=== PATIENT | male | born 1985 | race Caucasian/White ===

== ENCOUNTER → 2019-02-25 18:58 | Outpatient (CLI) | payer OTHER, SELFPAY ==
--- NOTE | 2019-02-25 | DI.MRI.S_ITS ---
PROCEDURE: MR ANKLE RT WO CON INDICATIONS: other synovitis and tenosynovitis of right ankle TECHNIQUE: Noncontrast sagittal T1 spin echo and T2 fast spin echo with fat saturation, axial proton density fast spin echo and T2 fast spin echo with fat saturation, coronal T1 spin echo and T2 fast spin echo with fat saturation through the ankle/hindfoot. COMPARISON: None. FINDINGS: Image quality: Excellent. Bones and joints: No bone marrow contusions or fractures. No hindfoot coalitions. No osteochondral injuries of the talar dome. No pathologic joint effusions. Type II accessory navicular bone noted. No edema is associated with the type II os naviculare. Medial structures: The posterior tibialis, flexor digitorum longus, and flexor hallucis longus tendons are intact. There is thickening of the posterior tibialis tendon with increased fluid in the tendon sheath compatible with tenosynovitis. The posterior tibial neurovascular bundle appears normal within the tarsal tunnel, without extrinsic mass effect. The deep layer (anterior and posterior tibiotalar ligaments) and superficial layer (tibionavicular, tibiospring, and tibiocalcaneal ligaments) of the deltoid ligament appear normal. The spring ligament components (superomedial calcaneonavicular, medioplantar oblique calcaneonavicular, and inferoplantar longitudinal ligaments) are intact. Lateral structures: The anterior talofibular, calcaneofibular, and posterior talofibular ligaments appear intact. More superiorly, the anterior and posterior tibiofibular ligaments appear intact, as is the intermalleolar ligament. The tibiofibular syndesmosis is normal in width at 2 mm or less. The peroneus longus and brevis tendons demonstrate normal location and morphology. Adjacent bony peroneal tubercle and retrotrochlear prominence are normal in size. The sinus tarsi demonstrates normal fatty signal, without edema, fibrosis, or cyst formation. Visualized sinus tarsi components (cervical ligament, interosseous talocalcaneal ligament, roots of the inferior extensor retinaculum) appear normal. The calcaneonavicular and calcaneocuboid components of the bifurcate ligament appear intact. The dorsal calcaneocuboid ligament appears intact. Anterior structures: The tibialis anterior, extensor hallucis longus, and extensor digitorum longus tendons appear intact. The dorsal talonavicular ligament appears intact. Posterior and plantar structures: Achilles tendon is intact. Medial and lateral bands of the plantar fascia are of normal thickness. No abductor digiti quinti muscle atrophy to suggest Anthony neuropathy. IMPRESSION: Posterior tibialis tenosynovitis. Dictated by: Carley Hoffmann MD, PhD on 02/26/2019 at 15:36 Approved by: Carley Hoffmann MD, PhD on 02/27/2019 at 10:25
== END ==
PROVIDERS: Visit Provider Podiatrist
DX: M65.871 Other synovitis and tenosynovitis, right ankle and foot (principal); M79.671 Pain in right foot; M25.471 Effusion, right ankle
CPT/HCPCS: 73721

== ENCOUNTER → 2019-10-01 20:09 | Outpatient (ROUT) | payer OTHER, SELFPAY ==
[2019-10-01 21:44] LABS: Urine N gonorrhoeae NOT DETECTED
[2019-10-01 22:01] LABS: Urine Chlamydia NOT DETECTED
== END ==
PROVIDERS: Visit Provider Physician Assistant
DX: Z11.3 Encounter for screening for infections with a predominantly sexual mode of transmission (principal)
CPT/HCPCS: 87491; 87591

== ENCOUNTER → 2020-01-10 11:08 | Outpatient (CLI) | payer OTHER, SELFPAY ==
--- NOTE | 2020-01-10 11:10 | DI.RAD.S_ITS ---
PROCEDURE: XR SHOULDER RT MIN 2V INDICATIONS: Progressive right shoulder pain TECHNIQUE: 3 views of the shoulder were acquired. COMPARISON: [facility], , SHOULDER INJECTION FOR MR/CT, 06/15/2017, 9:33. FINDINGS: Bones: No fractures or dislocations. No suspicious bony lesions. Visualized ribs appear intact. There is a right femoral screw seen. No findings of hardware failure or hardware loosening are seen. Soft tissues: No suspicious soft tissue calcifications. IMPRESSION: Unremarkable study, with a right humeral screw seen. If it would be helpful for clinical management decision making, please consider a dedicated shoulder MRI for further evaluation (assuming that there is no contraindication). If there is strong clinical concern for a labral abnormality, this should be performed according to the arthrogram protocol. Dictated by: Juan Aguilar M.D. on 01/10/2020 at 11:58 Approved by: Juan Aguilar M.D. on 01/10/2020 at 11:59
== END ==
PROVIDERS: Referring Provider Family Medicine; Visit Provider Family Medicine
DX: M25.511 Pain in right shoulder (principal)
CPT/HCPCS: 73030

== ENCOUNTER → 2020-05-14 11:49 | Outpatient (CLI) | payer OTHER, SELFPAY ==
[2020-05-15 18:00] LABS: COVID19 Sendout Not Detected (Not Detected)
== END ==
PROVIDERS: PCP Family Medicine; Visit Provider Physician Assistant
DX: Z11.59 Encounter for screening for other viral diseases (principal)
CPT/HCPCS: 87635

== ENCOUNTER → 2020-11-12 13:12 | Outpatient (CLI) | payer OTHER, SELFPAY ==
--- NOTE | 2020-11-12 | DI.RAD.S_ITS ---
PROCEDURE: FL SHOULDER INJECTION MR/CT LT INDICATIONS: SHOULDER INSTABILITY COMPARISON: [facility], CR, XR SHOULDER 2+ VIEWS LEFT, 09/17/2020, 9:43. TECHNIQUE: The indications, alternatives, benefits, risks, and complications of the procedure were explained to the patient. Written informed consent was obtained and placed in the chart. The shoulder was examined fluoroscopically and a site for needle placement chosen for entry into the glenohumeral joint from an anterior approach. The skin was prepped and draped in a sterile fashion, and 1% lidocaine infiltrated from skin down to joint capsule. A spinal needle was inserted into the glenohumeral joint, and a small amount of iodinated contrast media injected to confirm intra-articular placement of the needle tip. This was followed by approximately 12 mL dilute solution of a gadolinium containing MR contrast agent. The needle was removed and a dressing was applied. The patient was given postprocedural instructions and sent to the MR suite for MR imaging. FINDINGS: A single fluoroscopic spot image demonstrates intra-articular location of injected iodinated contrast. IMPRESSION: Successful fluoroscopically guided administration of dilute Gadolinium solution into the shoulder joint for MR arthrogram. Dictated by: Addy Mercer M.D. on 11/12/2020 at 16:45 Approved by: Addy Mercer M.D. on 11/12/2020 at 16:48
--- NOTE | 2020-11-12 13:49 | DI.MRI.S_ITS ---
PROCEDURE: MR SHOULDER LT W CON INDICATIONS: SHOULDER INSTABILITY TECHNIQUE: After the administration of 12 mL of dilute intra-articular Gadolinium contrast, oblique coronal T1 and T2 spin echo with fat saturation, oblique sagittal T1 spin echo with and without fat saturation, oblique sagittal T2 fast spin echo with fat saturation, axial T1 spin echo with fat saturation through the shoulder. COMPARISON: [facility], MR, SHOULDER WITH CONTRAST, 06/15/2017, 9:50. FINDINGS: Image quality: Excellent. Rotator cuff: Tendinosis and low-grade articular and bursal surface partial thickness tear involving distal supraspinatus at its insertion on humeral head is seen extending to musculotendinous junction. Distal infraspinatus and subscapularis tendons are grossly intact. No full-thickness rotator cuff tendon rupture. No rotator cuff muscle atrophy on sagittal images. Bones and bursae: Chronic Hill-Sachs deformity is again seen. No Bankart fracture. Mild to moderate acromioclavicular joint osteoarthritic changes are seen with downward osteophyte formation depressing the musculotendinous junction of supraspinatus. The acromion demonstrates conventional anatomy, without an os acromiale. Capsule and soft tissues: Patient is status post interval posterior superior labral repair with postsurgical changes. Sublabral foramen is seen. There is suggestion of a chronic appearing Bankart lesion with frayed appearance of anterior inferior labrum. [place] complex is again seen with thickened middle glenohumeral ligament. The long head of the biceps tendon demonstrates normal location and morphology. The rotator interval appears normal, without fibrosis. The coracohumeral ligament is of normal thickness. No intra-articular bodies. IMPRESSION: 1. Prior posterior superior labral repair with postsurgical changes. Suggestion of a chronic appearing Bankart lesion with frayed appearance of anterior inferior labrum at 5 to 6 o'clock position. 2. [place]-Sachs deformity of humeral head. Mild to moderate acromioclavicular joint osteoarthritis. No acute fracture or dislocation. 3. Tendinosis and low-grade articular and bursal surface partial thickness tear involving distal supraspinatus extending to musculotendinous junction. 4. Suggestion of [place] complex unchanged from prior study. Dictated by: Huy Pearson M.D. on 11/12/2020 at 15:51 Approved by: Huy Pearson M.D. on 11/12/2020 at 16:12
== END ==
PROVIDERS: PCP Family Medicine; Referring Provider Orthopaedic Surgery; Visit Provider Orthopaedic Surgery
DX: M25.312 Other instability, left shoulder (principal); M19.012 Primary osteoarthritis, left shoulder; M75.112 Incomplete rotator cuff tear or rupture of left shoulder, not specified as traumatic
CPT/HCPCS: 23350; 73222; 77002

== ENCOUNTER → 2020-12-05 10:07 | Outpatient (CLI) | payer OTHER, SELFPAY ==
[2020-12-05 11:01] LABS: COVID19 -Nasal RAPID Negative (Negative)
== END ==
PROVIDERS: PCP Family Medicine; Referring Provider Orthopaedic Surgery; Visit Provider Physician Assistant
DX: Z20.822 Contact with and (suspected) exposure to COVID-19 (principal)
CPT/HCPCS: 87635

== ENCOUNTER 2020-12-07 08:40 | Day surgery (SDC) | payer OTHER, SELFPAY ==
[2020-12-07] VITALS (14 sets, daily range): BP systolic 120–152; BP diastolic 65–85; PULSE 57–75; RESP 11–18; TEMP 35.9–36.6; O2SAT 94–100; BMI 30.5; BMI 31.5
--- NOTE | 2020-12-07 | DI.RAD.S_ITS ---
PROCEDURE: XR SHOULDER LT 1V INDICATIONS: LEFT SHOULDER TECHNIQUE: 1 views of the shoulder were acquired. COMPARISON: [facility], CR, XR SHOULDER RT MIN 2V, 01/10/2020, 11:03. FINDINGS: Bones: Glenoid screws. No fractures or dislocations. No suspicious bony lesions. Visualized ribs appear intact. Soft tissues: No suspicious soft tissue calcifications. IMPRESSION: Glenoid hardware intact. Single view showing no acute bony abnormality noted. Dictated by: Eric Owen M.D. on 12/07/2020 at 14:34 Approved by: Eric Owen M.D. on 12/07/2020 at 14:36
[2020-12-07] MEDS: LACTATED RINGERS 1,000 ML 42 ML IV (09:33)
--- NOTE | 2020-12-07 10:22 | PM.PREOP ---
Pre-operative Note COVID-19 COVID-19 status: Negative Result date/Date tested (Pos, Neg/Pending): 12/05/20 Interval Note History & Physical reviewed/Exam performed by Physician: Yes Changes to H&P: No
--- NOTE | 2020-12-07 11:22 | SUR.PREOP ---
Block start time 1111 . Monitoring initiated and maintained throughout procedure. Oxygen at 2L NC and medications given by anesthesiologist. Patient remained stable throughout procedure, no adverse reactions noted. Block end time 1119.
--- NOTE | 2020-12-07 11:47 | SUR.PREOP ---
Pt restign after lefft shoulder interscalene block done. Pt waiting for procedure. RN at bedside. Monitor on.
[2020-12-07] MEDS: CEFAZOLIN 2 GM/100 ML FROZ.PIGGY IV (11:50)
--- NOTE | 2020-12-07 12:21 | SUR.OPER ---
Beach chair with Alena/Reema shoulder positioner. Lower body on padded OR bed. Head in foam padded head cradle, secured with straps. Non-operative arm secured <90 degrees abduction. Pillow under knees. Safety belt at thigh. Cloth tape over blanket over lower legs.
[2020-12-07] MEDS: BUPIVACAINE 0.25% W/ EPI (PF) 10 ML VIAL 20 ML INJ (12:28)
--- NOTE | 2020-12-07 13:50 | P.OP_ITS ---
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 He initially did well but then had a traumatic recurrence of instability. This is not responded to nonoperative measures. His MRI shows an ?off track? lesion which suggests that a bone block would be necessary for fixation. He has agreed to a Latarjet procedure after discussion the risks benefits and alternatives. Risks discussed included but were not limited to: Failure to achieve stability, potential long- term arthritic change, nonunion, resorption of the graft, stiffness, infection, nerve damage, deep venous thrombosis, pulmonary embolism, stroke, myocardial infarction, aspiration pneumonia, permanent paralysis and . Surgeon: Lex Estes Yacht Master: Garret Monzon Anesthesia Type: General, Peripheral nerve block and Local Operative Notes Findings: Anterior bone loss on the glenoid. Intact glenoid cartilage and humeral cartilage. Closure Type: primary Specimen(s): none sent Prosthetic devices, grafts, tissues, transplants, or devices: Implants included 2 partially-threaded Synthes bone screws measuring 30 mm in length and 3 BioCo mposite SutureTak anchors from [employer]. Applied: implant(s) Estimated Blood Loss (mL): 100 Blood products transfused: none Procedure in detail: Patient was seen in the preoperative area where he identified the left shoulder as the operative site and this was marked with my initials. He received preoperative antibiotics and underwent an interscalene block. He was taken to the operating room and placed on the operating room table in a supine position where he underwent the induction of a general anesthetic. He was then repositioned in the ?beach chair? position using a dedicated positioner with padding for all pressure points. His knees were slightly flexed to prevent tension on the sciatic nerves. A livestock nutritionist-out was performed. The left arm was prepared from the fingertips to the base of the neck with ChloraPrep and draped through sterile drapes. An approximately 8 cm incision was created starting at the coracoid and extending distally over the deltopectoral interval. This was carried into the shoulder through a deltopectoral incision taking the cephalic vein laterally. The cephalic vein was protected throughout the case. There was some scarring anteriorly from his prior arthroscopic anterior stabilization. Motion intervals were reestablished between the deltoid and the underlying bone. The strap muscles were defined. The coracoacromial ligament was released from the lateral side of the coracoid and the pectoralis minor was released from the medial side. The anterior insertion of the strap muscles was left intact. A right angle saw was used to harvest 2 cm of the coracoid. This was completed using an osteotome. The strap muscles were gently mobilized with care being taken to avoid the muscular cutaneous nerve. The subscapularis was exposed by excising the overlying bursa. A subscapularis split was performed between the upper half and the lower half of the muscle. An inverted L-shaped capsular release was performed along the anterior glenoid and then horizontally underlying the subscapularis split. The inferior capsule was mobilized from the glenoid. The anterior glenoid neck was exposed. This had already been flattened by his instability but a bur was used to freshen the area to bleeding bone. The coracoid appeared to curve naturally with the glenoid curvature if the inferior portion was placed towards the joint. The medial aspect of the coracoid was then debrided with the bur to a flat surface to interact with the anterior portion of the glenoid neck. Three suture anchors were then placed along the cartilage rim at the 7:00 o'clock, 8:30 and 10:00 o'clock positions. The coracoid was then held in the appropriate position as a bone block and held in provisional fixation with a 1.25 mm K-wire. Two partially-threaded screws were then placed through the coracoid to complete fixation. There was good fixation on the glenoid. The K-wire was removed. Care was taken to direct the screws medial to the glenoid cartilage. The joint was irrigated. The capsule was then advanced superiorly and repaired to the previously placed suture anchors. The transverse incision in the capsule was imbricated using #2 FiberWire sutures. The split in the subscapularis was allowed to fall together but was not repaired to allow room for the strap muscles to slide back and forth with internal and external rotation. The wound was then copiously irrigated. The deltopectoral interval was reapproximated using 0 Vicryl suture. The subcutaneous layer was closed with interrupted 3-0 Vicryl. The subcutaneous layer was closed with a running 3 0 V lock suture and Dermabond. An additional 20 mL of local anesthetic was injected a in the subcutaneous tissues for postoperative pain control. An Aquacel dressing was applied and the patient was placed in a shoulder immobilizer. He was transferred to the recovery room in good condition having tolerated the procedure well. Complications: none Post-operative Condition: stable Disposition: PACU Plan for aftercare: The patient will be maintained on a standard Bankart procedure protocol with limitations of range of motion to protect the anterior capsule until it heals. He will be discharged either later this evening or tomorrow morning.
[2020-12-07] MEDS: ONDANSETRON 4 MG/2 ML INJ IV (14:12)
[2020-12-07] MEDS: METOCLOPRAMIDE 10 MG/2 ML INJ IV (14:26)
--- NOTE | 2020-12-07 14:35 | SUR.PHASEI ---
Report to David BOLAND on the floor
[2020-12-07] MEDS: LACTATED RINGERS 1,000 ML 100 ML IV (14:56)
--- NOTE | 2020-12-07 15:08 | SUR.PHASEI ---
Pt up to floor and transfer of care to Tamara BOLAND complete. VSS. AOx4
--- NOTE | 2020-12-07 16:37 | PT.IIE ---
Current Diagnoses Other specified acquired deformities of left upper arm (12/07/20) Other instability, left shoulder (12/07/20) Surgery Performed Operation Date: 12/07/20 10:45 Actual Procedures p Latarjet Repair - Shoulder(Left) - Lex Estes MD Medical History (Last Updated 03/17/20 @ 17:51 by El Gonsalves DO) Dyspepsia Dysuria Right shoulder pain Physical Therapy Inpatient Evaluation/Re-Eval M1 PT/OT-IP Prior Functional Status Start: 12/07/20 15:18 Freq: NEEDED Status: Active Protocol: Document 12/07/20 16:37 AW (Rec: 12/07/20 17:12 AW [id number]) Medical Review Prior Functional Status Medical History Reviewed Yes Communication WNL Mobility and Gait IND Activities of Daily Living and IADL's IND Prior Functional Level (Other details) Pt has history of left Bankart /SLAP repair 2018 and chronic GH instability. He is right hand dominant. Social History Household Members significant other Living Arrangements House Number of Floors (Floors) One Floor Number of Stairs To Enter/Railing? 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 He lives with his SO in [place]. His SO will be available and able to assist as needed when pt goes home. If she returns to work while pt continues to require assist , his mother will be able to stay with him. M2 PT-IP Current Condition Start: 12/07/20 15:18 Freq: NEEDED Status: Active Protocol: Document 12/07/20 16:37 AW (Rec: 12/07/20 17:12 AW [id number]) Physical Therapy Current Condition Current Condition Evaluation Date 12/07/20 Treatment Diagnosis s/p L Latarjet procedure; decreased indep with ADL's Onset Date 12/07/20 Precautions Other Precautions From PT consult: 90 FF, 0 abduction, 0 ER, IR to body may do AROM M3 PT-IP Subjective Start: 12/07/20 15:18 Freq: NEEDED Status: Active Protocol: Document 12/07/20 16:37 AW (Rec: 12/07/20 17:12 AW [id number]) Subjective Physical Therapy Visit Type Type Initial Evaluation Visit Start Time 16:15 Visit Stop Time 16:37 Total Visit Minutes 23 Notes Pt's SO present and provides assist with sling management and cueing. Physical Therapy Visit Comments Patient Comments Pt is groggy but willing to work with PT Patient Goals Return home at d/c and eventual return to work Therapy Pain Assessment Pain When Pain Assessed During Mobility Pain Present Pain Present Denied Pain M4 PT-IP Mobility and Gait Start: 12/07/20 15:18 Freq: NEEDED Status: Active Protocol: Document 12/07/20 16:37 AW (Rec: 12/07/20 17:12 AW [id number]) PT-Bed Mobility Assessment Supine to Sit Supine to Sit Standby Assistance PT-Transfer Assessment Sit to and From Stand Sit to and from Stand Standby Assistance Equipment Transfer Assistive Device Gait Belt Orthotic/Prosthetic Devices or Brace: Yes Transfers Transfer Destination Chair Transfer Technique Stand Step Pivot Transfer Ability Level of Assist Standby Assistance Comments Mobility Comments Pt was lying in the bed as PT arrived. Explained that if pt wanted to be able to leave today, he would need to do PT first. Pt agreed to mobilize. With HOB flat, pt completed supine to sit and stood from the bed SBA. He walked to the sink for instruction in sling fitting, donning, and doffing. Both the pt and his SO understood and could return demonstrate. Pt reported feeling nauseated and was instructed to sit on the chair . Pt transferred SBA and PT positioned pt in reclined position. BP was stable. Informed RN of pt symptoms. Gait Assessment Gait Gait Assistance Required: Standby Assistance Distance (Feet) 15 Assistive Devices Assistive Device Gait Belt Orthotic/Prosthetic Devices or Brace: Yes Gait Deviations General Gait Pattern Within Normal Limits Comments Gait Comments Pt ambulated in the room with steady gait, no AD. Stair Climbing Assessment Comments Stair Climbing Comments Not assessed. PT-Balance Assessment Sitting Balance and Reactions Static Sitting Balance Ability Normal Dynamic Sitting Balance Ability Good Standing Balance and Reactions Static Standing Balance Ability Good Dynamic Standing Balance Ability Good Device Used none M5 PT-IP Objective Assessments Start: 12/07/20 15:18 Freq: NEEDED Status: Active Protocol: Document 12/07/20 16:37 AW (Rec: 12/07/20 17:12 AW [id number]) Orientation Orientation/Cognition Level of Alertness Alert Orientation Name,Day of Week,Place, Situation Language Function Ability No Deficits Noted Safety Awareness Understands Safety Issues Memory Description No Deficits Noted Gross Range of Motion Upper Extremity ROM Assessment Left Impaired Lower Extremity ROM Assessment Within Functional Limits Strength Upper Extremity Strength Assessment Left Impaired Lower Extremity Strength Assessment Within Functional Limits Comments Strength Comments RUE grossly 5/5 all planes Sensation Assessment Sensation Gross Sensation Right UE Impaired Light Touch Absent Sensation Description Numbness M6 PT-IP Treatment Start: 12/07/20 15:18 Freq: NEEDED Status: Active Protocol: Document 12/07/20 16:37 AW (Rec: 12/07/20 17:12 AW [id number]) Physical Therapy Treatment Exercises Exercises Shoulder Pendulums,Elbow Flexion/Extension,Wrist ROM, Hand ROM Education Education Provided Precautions,Weight Bearing Status,Post-Op Packet,Safety Brace Education Donning,[place],Patient, Caregiver Other Treatments Other Treatment Performed Edcuated pt and his SO on post op precautions and sling management. M7 PT-IP Assessment and Plan Start: 12/07/20 15:18 Freq: NEEDED Status: Active Protocol: Document 12/07/20 16:37 AW (Rec: 12/07/20 17:12 AW [id number]) PT Summary Assessment and Plan Potential Rehabilitation Potential Good Status of Condition at Evaluation Evolving Summary Impairments Pain,ROM,Strength,Sensation, Bed Mobility,Transfers,Gait Assessment Summary Trae is a 34 yo man with history of chronic left shoulder instability anteriorly who was seen for PT evaluation on POD0 following left Latarjet procedure. He is independent in all regards at baseline. He required SBA for all mobility on evaluation which was limited due to nausea. He has his significant other to assist at home. PT anticipates he will be safe to discharge home with assist and outpatient PT once medically cleared. Goals Bed Mobility Goal Independent Transfer Goal Independent Gait Goal Independent Gait Distance 200 Other Goals - up/down one step without rail SBA Frequency of Treatment Frequency Of Treatment Twice a Day Treatment Plan Physical Therapy Treatment Plan Bed Mobility Training,Transfer Training,Gait Training, Therapeutic Exercise,Balance Retraining,Post Op Education, Discharge Planning,Hot or Cold Pack Other Recommendations and Next Treatment continue to assess mobility Focus and stairs Precautions Shoulder Precautions Sling,Internal Rotation to Body,No External Rotation,No Abduction,Forward Flexion to 90 degrees,Pendulums Recommendations To Nursing Amount of Assist Needed Standby Assistance Discharge Recommendations PT Discharge Recommendations Home with Assistance,[facility] Transportation Needs at Discharge Private Vehicle
--- NOTE | 2020-12-07 19:43 | PC.NURSE ---
Pt discharged home with significant other. Pt walks with a steady gait and voided in the bathroom. Pt denies CP, SOB, pain, nausea and dizziness. Pt is able to dress self with assistance from SO. This RN gave pt discharge instructions and clarified that the patient had no questions is regard to the education they received from the surgeon and PT. IV was removed and pt walks out with a steady gait. They plan to go to [facility] for their prescriptions and then head home.
== END 2020-12-07 19:40 | disposition home or self-care (01) ==
LOC: OR 08:42 → AC 08:43
PROVIDERS: PCP Family Medicine; Referring Provider Orthopaedic Surgery; Visit Provider Orthopaedic Surgery
PROC: (CPT 23462; principal; 2020-12-07 10:45)
DX: M25.312 Other instability, left shoulder (principal); M21.822 Other specified acquired deformities of left upper arm; I10 Essential (primary) hypertension; F32.9 Major depressive disorder, single episode, unspecified; Z98.890 Other specified postprocedural states
CPT/HCPCS: 23462; 64415; 73020; 97161; J0690; J1100; J2250; J2405; J2704; J2765; J3010

== ENCOUNTER → 2020-12-24 12:07 | Outpatient (CLI) | payer OTHER, SELFPAY ==
[2020-12-07 15:18] VITALS: BMI 31.5
[2020-12-24 12:46] LABS: COVID19 -Nasal RAPID Negative (Negative)
== END ==
PROVIDERS: PCP Family Medicine; Referring Provider Orthopaedic Surgery; Visit Provider Student in an Organized Health Care Education/Training Program
DX: Z20.822 Contact with and (suspected) exposure to COVID-19 (principal)
CPT/HCPCS: 87635

== ENCOUNTER 2020-12-25 13:40 | Inpatient (IN) | payer OTHER, SELFPAY ==
[2020-12-07 15:18] VITALS: BMI 31.5
[2020-12-25] VITALS (13 sets, daily range): BP systolic 106–139; BP diastolic 57–86; PULSE 58–94; RESP 12–18; TEMP 36.2–37.1; O2SAT 93–98; BMI 29.9
[2020-12-25] MEDS: LACTATED RINGERS 1,000 ML 100 ML IV (14:42)
--- NOTE | 2020-12-25 14:49 | PM.PREOP ---
Pre-operative Note COVID-19 COVID-19 status: Negative Result date/Date tested (Pos, Neg/Pending): 12/24/20 Interval Note History & Physical reviewed/Exam performed by Physician: Yes Changes to H&P: No
--- NOTE | 2020-12-25 15:23 | SUR.PREOP ---
1520 - Pt moved to block room. Monitoring initiated and O2 at 2L NC applied. 1522 - Timeout performed. Sedation given by Dr Mehta 1531 - Initial injection time. 1536 - Block complete. Patient remained stable throughout procedure. No adverse reactions noted. See monitor strips for rhythm and VS.
--- NOTE | 2020-12-25 15:59 | PM.PROC.1 ---
Procedures Date/Time Date of procedure: 12/25/20 Time of procedure: 15:20 General Procedure description: Ultrasound guided interscalene brachial plexus nerve block for post op pain control after left shoulder incision and drainage by Dr. Estes. Risk and benefits of procedure discussed with patient. ASA monitoring applied to patient. O2 given via nasal cannula. 2 mg Versed and 100 mcg fentanyl given for procedural sedation. Skin site was prepped with chlorhexidine and allowed to fully dry. Sterile gloves, mask, hat and probe cover were used to maintain sterility. 2% lidocaine and 30ga needle was used to make a small skin wheal at needle insertion site. Under ultrasound guidance, a 21ga 50mm Pajunk needle was directed into the interscalene groove (middle/anterior scalenes) near the brachial plexus. Patient reported no parasthesias. After negative aspiration, 20 mL 0.5% ropivicaine and 10mg dexamethasone were injected around brachial plexus. Patient tolerated procedure well.
[2020-12-25] MEDS: CEFAZOLIN 2 GM/100 ML FROZ.PIGGY IV (16:00)
--- NOTE | 2020-12-25 16:04 | SUR.OPER ---
Beach chair on padded OR bed. Head on gel donut secured with tape over gauze. Non-operative arm secured <90 degrees abduction on padded arm board. Pillow under knees. Safety belt at thigh. Cloth tape over blanket over lower legs.
--- NOTE | 2020-12-25 16:50 | PM.OP.1 ---
Operative Date/Time/Diagnoses Date of procedure: 12/25/20 Time of procedure: 16:50 Pre-op diagnosis: Postoperative wound infection, left shoulder Post-op diagnosis: same Procedure & Clinicians Procedure: Incision and drainage of infected hematoma, left shoulder Same procedure as scheduled: Yes Indications: The patient is a 35-year-old gentleman who underwent a Latarjet procedure 18 days ago. He presented to the office 2 days ago with redness and swelling around the wound. Oral antibiotics were prescribed however he did not get those from the pharmacy due to a miscommunication. He presented yesterday with worsening of his symptoms and active drainage from the wound. He is taken to the operating room today for incision and drainage after discussion the risks benefits and alternatives. Risks discussed included but were not limited to: Failure to eradicate the infection, potential need for additional surgery, stiffness, nerve damage, deep venous thrombosis, pulmonary embolism, stroke, myocardial infarction, aspiration pneumonia, permanent paralysis and . Surgeon: Lex Estes Click Yes if Unassisted: Yes Anesthesia Type: General and Peripheral nerve block Operative Notes Findings: Moderately large fluid collection under some pressure in the subcutaneous tissues that did not appear to extend deep to the deltopectoral interval. Closure Type: primary Specimen(s): other (Two cultures from the subcutaneous layer and 1 from deep to the deltopectoral interval were sent.) Prosthetic devices, grafts, tissues, transplants, or devices: None Applied: drain(s) Estimated Blood Loss (mL): 150 Blood products transfused: none Procedure in detail: Patient was seen in the preoperative area where identified his left shoulder as the operative site. This was marked with my initials. Preoperative antibiotics were withheld to maximize culture yield. He underwent the induction of an interscalene block. He was taken to the operating room and placed on the operating room table in a supine position where he underwent a general anesthetic. He was then repositioned in the ?beach chair? position by manipulating the operating room table. A time piece repairer-out was performed. The right arm was prepared for the fingertips the base of the neck with ChloraPrep in the usual fashion draped through sterile drapes. The pre-existing incision was reopened. Fluid was released from the wound under pressure. This was suctioned. Two cultures were obtained in this superficial layer. I inspected the base of the wound and it appeared as if there had been closure of the deltopectoral interval was scar although there was a small area at the top of the deltopectoral interval which went a little deeper as is anatomically normal. As a result I elected to reopen the deltopectoral interval to be sure there was not deep infection. This was reopened, it appeared to be clean but a culture was obtained any way. Intravenous antibiotics with Ancef were then administered. 3 L of pulsatile lavage was then used to debride and irrigate the wound. Hemostasis was obtained with electrocautery. A drain was placed and brought out superiorly. This was placed in both the superficial and deep spaces to drain both of them. The deltopectoral interval was reapproximated with 0 Vicryl. The subcutaneous layer closed with 3-0 Vicryl and the skin with a running 3-0 barbed suture. Dermabond was applied followed by an Aquacel Ag dressing. The patient's arm was placed in a shoulder immobilizer and he was transferred to the recovery room in good condition having tolerated the procedure well after extubation in the operating room. Complications: none Post-operative Condition: stable Disposition: PACU Plan for aftercare: The patient will be maintained in the hospital until the culture results return to allow appropriate antibiotic choice. He will be maintained on 2 g of Ancef every 8 hours until culture results return. The drain will be discontinued when drain output is minimal. He likely will be maintained on oral antibiotics for at least 2 weeks postoperatively.
[2020-12-25] MEDS: OXYCODONE IR 5 MG TABLET PO (17:39)
--- NOTE | 2020-12-25 17:47 | PC.NURSE ---
Addendum entered by Bruna Roblero R.N. 12/25/20 21:18: Pt c/o feeling hot and woozie once again. Cold washcloth to forehead with fan to cool pt. BP 140's over 80's. Pain 2/10. Pt states feels as though getting close to needing to void. Instructed pt and pt's S.O. to call staff for assistance as staff desire pt not to be up unsupervised postoperatively. Pt states left hand and UE still feeling numb. No change in neurovascular status since receipt from PACU. Sling remains intact to left UE. S.O. has brought food in for patient and pt is eating. Inspector Of Dredging remains slight to left fingers with warm and pink digits. Addendum entered by Bruna Roblero R.N. 12/25/20 19:48: Pt c/o feeling woozie. Has eaten applesauce and yogurt. Administered zofran and provided pt with rakan hussein. Pt reports no change in neurovascular status left hand/UE. Addendum entered by Bruna Roblero R.N. 12/25/20 18:42: Pt acknowledges understanding of I.S. use and this is provided to pt. Pt reports pain managed well at this time with oxycodone 5 mg. Pt's S.O. is present in pt's room. Original Note: Pt to room 216 from PACU drowsy, but rousable. Admits to numbness to left arm/hand and has no sensation, but is able to wiggle fingers upon command. Left digits are warm to touch and pink in color. Palpable left radial pulse. LUE is immobilized in sling with ABD pad under axilla. Ice to aquacel dressing left anterior shoulder which is dry and intact. As pt becomes more wakeful, c/o burning at incision site. Applesauce and oxycodone given as per emar. Pt oriented to call light and encouraged to call for needs. BL calf scd's in place. Room air 98%.
[2020-12-25] MEDS: ONDANSETRON 4 MG/2 ML INJ IV (19:27)
[2020-12-25] MEDS: SODIUM CHLORIDE 0.9% FLUSH 10 ML IV (19:28)
[2020-12-25] MEDS: ACETAMINOPHEN 325 MG TABLET 975 MG PO (20:56)
[2020-12-25] MEDS: ASPIRIN EC 81 MG TABLET PO (20:57)
[2020-12-26] MEDS: OXYCODONE IR 5 MG TABLET PO ×4 (00:12→23:08)
[2020-12-26] MEDS: CEFAZOLIN 2 GM/100 ML FROZ.PIGGY IV ×3 (00:13→16:42)
[2020-12-26] MEDS: SODIUM CHLORIDE 0.9% FLUSH 10 ML IV ×4 (00:14→20:41)
[2020-12-26 05:33] VITALS: BP 137/81; PULSE 82; RESP 16; TEMP 36.1; O2SAT 98
[2020-12-26 06:45] LABS: Hematocrit 37.2 % (41-53); Hemoglobin 12.8 g/dL (13.5-17.5); Mean Corpuscular HGB Conc 34.5 % (30-36); Mean Corpuscular Hemoglobin 30.4 PG (26-34); Platelet Count 391 X10^3/uL (150-400); Red Blood Cell Count 4.23 X10^6/uL (4.5-5.9); White Blood Cell Count 11.1 X10^3/uL (4.5-11.0)
[2020-12-26] MEDS: ONDANSETRON 4 MG/2 ML INJ IV ×2 (07:54→16:59)
[2020-12-26 08:00] VITALS: BP 137/82; PULSE 82; RESP 16; TEMP 36.4; O2SAT 96
--- NOTE | 2020-12-26 08:06 | PM.PNPO.1 ---
Subjective Subjective Date Patient Seen: 12/26/20 Time Patient Seen: 08:06 Interval history: Patient reports mild nausea. He reports his block has worn off. Pain is manageable. Exam Vital Signs (past 8 hours): - 12/26/20 05:33 Temperature 96.9 F L Pulse Rate 82 Respiratory Rate 16 Blood Pressure 137/81 Pulse Oximetry 98 Oxygen Delivery Method Room Air Oxygen Flow Rate 0 Narrative Exam Narrative: Left shoulder wound is dressed with no significant drainage on the bandage. Drain has put out 15 mL since surgery. Light touch is intact in the radial, ulnar, median, musculocutaneous and axillary nerve distribution. He can extend his thumb, abduct his thumb, abduct his fingers and can fire his biceps and deltoid. Objective Labs Result Diagrams: 12/26/20 06:10 Labs: Laboratory Results - last 24 hr 12/26/20 06:10 WBC 11.1 H RBC 4.23 L Hgb 12.8 L Hct 37.2 L MCV 88.0 MCH 30.4 MCHC 34.5 RDW 12.0 Plt Count 391 PFSH Medical History (Updated 03/17/20 @ 17:51 by El Gonsalves DO) Dyspepsia Dysuria Right shoulder pain Social History household members: significant other and children Smoking Status: Former smoker Tobacco: How many years used: 20 quit status: quit date established second hand exposure: No alcohol intake: current substance use type: marijuana (1gram every couple days ) Assessment & Plan Post-op Postoperative Procedures: Procedures Operation Date: 12/25/20 15:15 Actual Procedures Side Surgeon p I&D shoulder Left Lex Estes MD Postoperative day: 1 Postoperative status: doing well and anemia Postoperative status narrative: The patient is stable postop day 1 status post incision and drainage of a postoperative wound infection approximately 2 weeks after Latarjet procedure of the left shoulder. He has a mild post hemorrhagic anemia. No overt signs of infection this morning except for mild elevation of his white count. Drain output has been minimal. Cultures are pending, Gram stains show white cells but no organisms. Postoperative plan: routine post-op care Postoperative plan narrative: He will continue on Ancef. We await the culture results for more specific antibiotics. Cultures will determine the eventual oral antibiotics for outpatient treatment, however if he is clinically asymptomatic tomorrow he likely will be presumptively discharged on Keflex as we do not expect sensitivities to be available tomorrow. His anemia is minimal and does not require specific treatment. The nurses request that he have a prescription for Colace to prevent constipation from his narcotic pain reliever. Time Spent With Patient Time with patient: less than 15 minutes Quality VTE Deep Vein Thrombosis/Pulmonary Embolism Present on Admission: No
--- NOTE | 2020-12-26 09:10 | PT.IIE ---
Current Diagnoses Infection following a procedure, other surgical site, initial encounter (12/25/20) Surgery Performed Operation Date: 12/25/20 15:15 Actual Procedures p I&D shoulder(Left) - Lex Estes MD Medical History (Last Updated 03/17/20 @ 17:51 by El Gonsalves DO) Dyspepsia Dysuria Right shoulder pain Physical Therapy Inpatient Evaluation/Re-Eval M1 PT/OT-IP Prior Functional Status Start: 12/26/20 10:26 Freq: NEEDED Status: Active Protocol: Document 12/26/20 09:10 AB (Rec: 12/26/20 10:45 AB [id number]) Medical Review Prior Functional Status Medical History Reviewed Yes Diet/Fluid Consistency Regular Communication able to make needs known Mobility and Gait pt stated that he is independent with all mobilities and ambulation without AD Social History Household Members significant other,children Living Arrangements House Number of Floors (Floors) One Floor Number of Stairs To Enter/Railing? 2 steps without rails to enter Home Environment Standard Height Toilet,Walk in Shower Home Equipment Hand Held Shower Additional Social History Comment pt plans to sleep on his recliner M2 PT-IP Current Condition Start: 12/26/20 10:26 Freq: NEEDED Status: Active Protocol: Document 12/26/20 09:10 AB (Rec: 12/26/20 10:45 AB [id number]) Physical Therapy Current Condition Current Condition Evaluation Date 12/26/20 Treatment Diagnosis I&D L shld infected hematoma s /p latarjet procedure; difficulty in walking Onset Date 12/25/20 Precautions Shoulder Precautions Sling,PROM,Internal Rotation to Body,No Abduction Other Precautions per doctor's order: 180 deg forward flexion; 0 abd; 30 deg ER; IR to body M3 PT-IP Subjective Start: 12/26/20 10:26 Freq: NEEDED Status: Active Protocol: Document 12/26/20 09:10 AB (Rec: 12/26/20 10:45 AB [id number]) Subjective Physical Therapy Visit Type Type Initial Evaluation Visit Start Time 09:10 Visit Stop Time 10:23 Total Visit Minutes 29 Notes pt seen for split visits: 910 am to 916 am and 1000 to 1023 am Number of ELECTROLYSIST Visits 0 Physical Therapy Visit Comments Patient Comments pt is agreeable to do PT Therapy Pain Assessment Pain When Pain Assessed At Rest Pain Present Pain Present Pain Reported Location left shoulder Intensity 5 Scale Used Numeric (0 - 10) Pain Management Techniques Apply Cold,Modification of Treatment,Re-positioning, Timing of Activity with Medications M4 PT-IP Mobility and Gait Start: 12/26/20 10:26 Freq: NEEDED Status: Active Protocol: Document 12/26/20 09:10 AB (Rec: 12/26/20 10:45 AB [id number]) PT-Bed Mobility Assessment Supine to Sit Supine to Sit Independent,Head of Bed Elevated PT-Transfer Assessment Sit to and From Stand Sit to and from Stand Independent Equipment Transfer Assistive Device None Orthotic/Prosthetic Devices or Brace: Yes Transfers Transfer Destination Toilet Transfer Technique ambulated Transfer Ability Level of Assist Independent Comments Mobility Comments educated pt on shoulder precautions, HEP. pt understood and agreed. pt completed bed mobility independent with HOB elevated. pt plans to sleep on his recliner upon d/c. pt was able to sit on EOB without LOB . completed elbow/wrist/hand exercises and was able to betsey his sling on independently. ambulated without AD in room independent and ambulated in the hallway. completed up/ down steps without rail independent and ambulated back to his room. requested to use the toilet and completed independent. agreed to sit up on chair. positioned on chair. call light and table placed within reach. left pt with spouse in room. informed pt and spouse that pt is independent with mobility and no PT indicated at this time in the hospital. pt is aware of his HEP and precautions and agreed to do his exercises by himself. Gait Assessment Gait Gait Assistance Required: Independent Distance (Feet) 300 Able to Maintain Weight Bearing Status Yes During Gait Assistive Devices Assistive Device None Orthotic/Prosthetic Devices or Brace: Yes Gait Deviations General Gait Pattern Within Normal Limits Stair Climbing Assessment Evaluation Level of Assist On Stairs Independent Devices Stair Climbing Assistive Devices None Technique/Endurance Stair Climbing Direction Ascend and Descend Stair Climbing Technique Step Over Step Number of Steps Climbed 3 Query Text: Stair Climbing Set # Repetitions (reps) 1 PT-Balance Assessment Sitting Balance and Reactions Static Sitting Balance Ability Normal Dynamic Sitting Balance Ability Normal Standing Balance and Reactions Static Standing Balance Ability Normal Dynamic Standing Balance Ability Normal Device Used without AD M5 PT-IP Objective Assessments Start: 12/26/20 10:26 Freq: NEEDED Status: Active Protocol: Document 12/26/20 09:10 AB (Rec: 12/26/20 10:45 AB [id number]) Orientation Orientation/Cognition Level of Alertness Alert Orientation Name,Age,Birthday,Month,Date, Year,Day of Week,Place, Situation Language Function Ability No Deficits Noted Safety Awareness Understands Safety Issues Memory Description No Deficits Noted Gross Range of Motion Lower Extremity ROM Assessment Within Functional Limits Strength Lower Extremity Strength Assessment Within Functional Limits Muscle Tone Muscle Tone WNL Yes M6 PT-IP Treatment Start: 12/26/20 10:26 Freq: NEEDED Status: Active Protocol: Document 12/26/20 09:10 AB (Rec: 12/26/20 10:45 AB [id number]) Physical Therapy Treatment Exercises Exercises Elbow Flexion/Extension,Wrist ROM,Hand ROM Education Education Provided Precautions,Weight Bearing Status,Post-Op Packet,Safety M7 PT-IP Assessment and Plan Start: 12/26/20 10:26 Freq: NEEDED Status: Active Protocol: Document 12/26/20 09:10 AB (Rec: 12/26/20 10:45 AB [id number]) PT Summary Assessment and Plan Potential Rehabilitation Potential Good Status of Condition at Evaluation Stable Summary Impairments Pain,ROM,Strength Progress Towards Goals Safe For Discharge Assessment Summary PT eval completed and pt is independent with mobility. educated pt with his precautions and HEP and pt agreed to do exercises by himself. pt stated that he had been doing his exercises when he first had his shoulder surgery. No further PT indicated at this time. PT to continue PT in an outpt setting to progress shoulder strength/function per doctor's post-op protocols. Frequency of Treatment Frequency Of Treatment Discharge Precautions Shoulder Precautions Sling,PROM,Internal Rotation to Body,No External Rotation, No Abduction Other Precautions per doctor's order: 180 deg forward flexion; 0 abd; 30 deg ER; IR to body Recommendations To Nursing Amount of Assist Needed Independent Discharge Recommendations PT Discharge Recommendations Home,Outpatient PT Transportation Needs at Discharge Private Vehicle
[2020-12-26] MEDS: ACETAMINOPHEN 325 MG TABLET 975 MG PO ×3 (09:14→20:36)
[2020-12-26] MEDS: OXYCODONE IR 10 MG TABLET PO ×2 (09:14→14:14)
[2020-12-26] MEDS: DOCUSATE 100 MG CAPSULE PO ×2 (09:15→20:35)
[2020-12-26] MEDS: ASPIRIN EC 81 MG TABLET PO ×2 (09:15→20:36)
[2020-12-26] MEDS: ONDANSETRON 4 MG ODT PO (12:40)
--- NOTE | 2020-12-26 13:07 | CM.DANOTE ---
DCP Assessment Patient is a 35 yo male who was admitted on 12/25/20 for planned I&D. Pt has [facility] [employer] for [facility] and his PCP is Dr. El Gonsalves. EMR was reviewed. Per Ortho MD, pt post shoulder surgery out 2 weeks and developed an infection/hematoma and needing I&D which was completed yesterday. Pt tolerated procedure well and pain seems to be well managed at this time as block has now worn off and awaiting cultures to return to confirm which oral abx for discharge. Per PT, pt able to participate and aware of the recommended exercises and recommending safe d/c home with Sig Other and outpt PT. Pt resides at home with Sig Other and children and is active and independent at baseline. Sig Other available for assist at d/c and pt does not anticipate any SW needs at d/c. Plan: SW to follow for likely pt d/c home with family assist tomorrow if medically stable and cultures have returned. Follow for any further d/c planning needs. ABBY La
--- NOTE | 2020-12-26 13:28 | PC.NURSE ---
Pt A&Ox3. Reports pain from 4- 7 in Left shoulder today. Well controlled with PRN oxycodone 10 mg. Pt with x1 episode of n/v and emesis this a.m. prior to breakfast, but able to tolerate breakfast and lunch. PRN zofran administered per request. VSS, afebrile on RA. Particpating with PT today ambulating in [place] wtih steady gait. BS +x4. LS CTA. MD at bedside this a.m. Plan for discharge possibly norman or Monday awaiting culture sensitivity results.
[2020-12-26] MEDS: polyethylene glycoL 3350 17 GM POWD.PACK PO (14:19)
[2020-12-26 15:50] VITALS: BP 141/87; PULSE 72; RESP 16; TEMP 36.1; O2SAT 97
[2020-12-26] MEDS: HYDROMORPHONE 0.5 MG INJ 0.2 MG IV (16:59)
[2020-12-26 20:45] VITALS: BP 108/68; PULSE 74; RESP 16; TEMP 36.4; O2SAT 96
[2020-12-26 23:00] VITALS: BP 128/77; PULSE 69; RESP 16; TEMP 36.6; O2SAT 97
[2020-12-27] MEDS: ONDANSETRON 4 MG/2 ML INJ IV ×2 (00:38→08:09)
[2020-12-27] MEDS: SODIUM CHLORIDE 0.9% FLUSH 10 ML IV ×2 (00:39→08:07)
[2020-12-27] MEDS: SODIUM CHLORIDE 0.9% 250 ML 21 ML IV (00:39)
[2020-12-27] MEDS: CEFAZOLIN 2 GM/100 ML FROZ.PIGGY IV ×2 (00:51→08:06)
[2020-12-27 04:00] VITALS: BP 127/66; PULSE 65; RESP 14; TEMP 36.5; O2SAT 97
--- NOTE | 2020-12-27 07:48 | PC.NURSE ---
Addendum entered by Angelic Olmos R.N. 12/27/20 10:22: Drain removed, patient tolerated. Patient's IV removed, tip intact. Patient given education regarding f/u with Dr. Estes in 1 week, activity, medications, and wound care. Patient and partner verbalized understanding. Patient discharged via wheelchair with aide assist. Addendum entered by Angelic Olmos R.N. 12/27/20 08:15: IV ABX hung, patient requests zofran IV prior to administration d/t previous bouts of nausea with abx. PRN Zofran 4 mg IV administered. Original Note: Patient resting in bed. L Shoulder dsg CDI, hemovac compressed, intact. Patient c/o pain 5/10, prefers to avoid narcotics. Willing to wait for 0900 Tylenol. Ice applied. Lungs CTA, 97% room air. Patient denies further needs at this time. Call light in reach.
[2020-12-27] MEDS: ACETAMINOPHEN 325 MG TABLET 975 MG PO (08:06)
[2020-12-27] MEDS: ASPIRIN EC 81 MG TABLET PO (08:06)
[2020-12-27] MEDS: DOCUSATE 100 MG CAPSULE PO (08:07)
--- NOTE | 2020-12-27 09:35 | P.DS_ITS ---
History of Present Illness History of Present Illness Date Patient Seen: 12/27/20 Time Patient Seen: 09:35 Chief complaint: INPT Narrative: The history and physical is contained in the chart in a previously completed note. Please refer to that note for this information. Discharge Providers Provider Date of admission: 12/25/20 13:40 Discharge Date: 12/27/20 Primary care physician: El Gonsalves DO Consults: 12/25/20 17:25 Consult to Discharge Planning Routine Comment: Hope to have on PO antibiotics depending on sensit Consult to Physical Therapy Evaluate & Treat Comment: limits 180 ff, 0 abd, er 30, IR to body Physician Instructions: Evaluate and Treat Discharge provider: Lex Estes MD Summary Hospital Course Discharge Diagnosis: 1. Postoperative wound infection, left shoulder 2. Left shoulder chronic anterior instability 3. Status post left shoulder Latarjet procedure 4. Mild post hemorrhagic anemia Hospital Course: Patient was admitted to the hospital and taken directly to the operating room on Friday December 25, 2020. He underwent an incision and drainage for postoperative infected hematoma. Surgery went well. After irrigation his wound was closed over a drain. He remained afebrile during his hospital course. On postoperative day 2 his preliminary culture reports are negative for growth. Drain output has been minimal. He has had a mild post hemorrhagic anemia that does not require specific treatment. Pain is controlled on oxycodone. Status at Discharge Cognitive/behavioral status at discharge: oriented Functional status at discharge: independent ambulation Overall status at discharge: patient is progressing back to baseline Time Spent with Patient Time spent: Less than 30 minutes Exam Vital Signs (past 8 hours): - 12/27/20 04:00 Temperature 97.7 F Pulse Rate 65 Respiratory Rate 14 Blood Pressure 127/66 Pulse Oximetry 97 Oxygen Delivery Method Room Air Oxygen Flow Rate 0 Narrative Exam Narrative: Left shoulder wound is dressed with no drainage on the bandage. There is no surrounding erythema or significant swelling. In light touch is intact in the radial, ulnar, median, muscular cutaneous and axillary nerve distributions. He can extend his thumb, abduct his thumb, abduct his fingers and can fire his biceps and deltoid. Objective Labs Result Diagrams: 12/26/20 06:10 [facility] Medical History (Updated 03/17/20 @ 17:51 by El Gonsalves DO) Dyspepsia Dysuria Right shoulder pain Social History household members: significant other and children Smoking Status: Former smoker Tobacco: How many years used: 20 quit status: quit date established second hand exposure: No alcohol intake: current substance use type: marijuana (1gram every couple days ) Discharge Assessment & Plan Assessment and Plan Assessment: The patient is doing well after I&D of a postoperative wound infection which appeared to be an infected hematoma. He did receive several doses of Keflex prior to surgery and cultures are returning no growth. The likely infectious agent is a methicillin-susceptible staph. He has remained afebrile on postoper ative Ancef. His pain is well controlled. His minor post hemorrhagic anemia has not required treatment. Plan of Treatment: Discontinuation of the drain this morning as drainage output has been minimal. Discharge to home on oral antibiotics consisting of Keflex 500 mg p.o. q.i.d.. The patient will have a wound check in 7-10 days. He will return earlier if problems arise. He has been instructed in physical therapy exercises for the ongoing rehab after his prior stabilization procedure. A prescription for oxycodone has been sent to his pharmacy for pain control. The patient does have Keflex available at home from the for his drainage. He also has a supply [place] at home. Discharge Plan Discharge Plan Patient Disposition: Home Discharge orders & Medications Prescriptions: New cephalexin 250 mg Capsule 500 mg PO QID 14 Days Qty: 112 RF: 0 hydroxyzine HCl 50 mg/mL Solution 25 mg IM Q4HR PRN (Reason: Spasms) 30 Days RF: 0 oxycodone 5 mg Tablet 5 mg PO Q4H PRN (Reason: Pain, Moderate (4-6)) Qty: 40 RF: 0 Continued hydroxyzine pamoate 25 mg Capsule 25 mg PO Q6HR PRN (Reason: Spasms) Qty: 30 RF: 0 cephalexin 500 mg capsule 500 mg PO Q6H RF: 0 acetaminophen 325 mg tablet 650 mg PO TID PRN (Reason: Pain (Scale Score 1-3)) RF: 0 Follow up/Referrals: Lex Estes MD [Physician] - 1 Week El Gonsalves DO [Primary Care Provider] - Discharge Health Status Multidrug resistant organism: No MDRO Diet/Activity/Treatments Diet: Diet as Tolerated and Regular Activity: You may raise your arm overhead in front of your body and externally rotate as far as 30?. Other than therapy exercises and hygiene, keep your arm in the sling. Cold/Heat Therapy: You may apply ice for 15 minutes every hour as needed to the left shoulder for pain control. Skin/Wound/Dressing Care Report to your healthcare provider any signs of infection, such as:: chills, fever, night sweats, increased pain, unusual drainage and unusual redness Dressing: Leave the dressing in place until postoperative follow-up. You may shower with the dressing in place. If the central strip of the dressing becomes saturated with either water or blood, please call the office to have it evaluated. Visit Report/Discharge Packet Instructions: DI for Prescription Opioid Use, DI for Incision and Drainage of a Joint, DI for Incision and Drainage Stand Alone Forms: Surgery Discharge Discharge Data Primary Care Provider: El Gonsalves VTE Deep Vein Thrombosis/Pulmonary Embolism Present on Admission: No
== END 2020-12-27 10:40 | disposition home or self-care (01) | DRG 857 ==
PROVIDERS: Admitting Provider Orthopaedic Surgery; PCP Family Medicine; Referring Provider Orthopaedic Surgery; Visit Provider Orthopaedic Surgery
PROC: 0K9800Z Drainage of Left Upper Arm Muscle with Drainage Device, Open Approach (ICD-10-PCS; principal; 2020-12-25 15:15)
DX: T81.41XA Infection following a procedure, superficial incisional surgical site, initial encounter (principal); L76.32 Postprocedural hematoma of skin and subcutaneous tissue following other procedure; M25.312 Other instability, left shoulder
CPT/HCPCS: 36415; 85027; 87070; 87075; 87077; 87147; 87186; 87205; 97161; J0690; J1170; J1885; J2250; J2405; J2704; J3010

== ENCOUNTER → 2021-01-14 07:23 | Outpatient (CLI) | payer OTHER, SELFPAY ==
[2020-12-25 17:41] VITALS: BMI 29.9
--- NOTE | 2021-01-14 | DI.MRI.S_ITS ---
PROCEDURE: MR SHOULDER LT WO CON INDICATIONS: Infection following a procedure, other surgical si TECHNIQUE: Noncontrast oblique coronal T2 fast spin echo with fat saturation, oblique sagittal T1 spin echo and T2 fast spin echo with fat saturation, axial T1 spin echo and T2 fast spin echo with fat saturation through the shoulder. COMPARISON: [facility], MR, MR SHOULDER LT W CON, 11/12/2020, 14:11. [facility], CR, XR SHOULDER LT 1V, 12/07/2020, 14:22. FINDINGS: Image quality: Excellent. Rotator cuff: Supraspinatus and infraspinatus tendinosis is again seen with mild thinning of the tendon at the myotendinous junction that may be related to low-grade partial tearing or surgical debridement. No full-thickness rotator cuff tendon tear is seen. There is mild anterior bowing of the subscapularis tendon around the glenoid surgical construct. Bones and bursae: Postsurgical changes are seen from a Latarjet type procedure at the anteroinferior glenoid with a coracoid autograft and 2 metallic screws. Metal artifact partially obscures adjacent structures. Changes from a Remplissage procedure are also noted at the posterosuperior humeral head at the site of the previously seen Hill-Sachs lesion. Mild degenerative changes at the acromioclavicular joint appears stable. There is a moderate glenohumeral joint effusion with moderate synovial hypertrophy anterior aspect of the joint in the axillary recess. Capsule and soft tissues: Edema is seen tracking medially along the subscapularis muscle. A small fluid collection is seen at the anterior surgical site measuring approximately 2.5 x 1.0 x 2.9 cm. Mildly prominent left axillary lymph nodes are nonspecific and may be reactive. Probable Trevor complex again noted. The visualized posterior and inferior labrum appears intact. The long head of the biceps tendon demonstrates normal location and morphology. IMPRESSION: 1. Postsurgical changes are seen from Latarjet and Remplissage procedures. 2. Moderate glenohumeral joint effusion with synovial hypertrophy and mild soft tissue edema surrounding the shoulder are nonspecific, but joint space infection is not excluded. No osseous erosions or direct signs of osteomyelitis identified. Consider joint aspiration to exclude septic arthritis. 3. Small fluid collection measuring 2.5 x 1.0 x 2.9 cm in the anterior subcutaneous tissues adjacent to the surgical scar could represent postoperative fluid collection including small seroma, evolving hematoma, or less likely abscess. 4. Tendinosis and possible low-grade partial tearing or surgical debridement at the supraspinatus tendon myotendinous junction. Dictated by: Tarik Sanchez M.D. on 01/14/2021 at 8:29 Approved by: Tarik Sanchez M.D. on 01/14/2021 at 8:56
== END ==
PROVIDERS: PCP Family Medicine; Referring Provider Family Medicine; Visit Provider Orthopaedic Surgery
DX: T81.49XA Infection following a procedure, other surgical site, initial encounter (principal); M25.412 Effusion, left shoulder
CPT/HCPCS: 73221

== ENCOUNTER → 2021-06-02 09:27 | Outpatient (CLI) | payer OTHER, SELFPAY ==
[2020-12-25 17:41] VITALS: BMI 29.9
[2021-06-02 11:43] LABS: Urine N gonorrhoeae NOT DETECTED
[2021-06-02 11:45] LABS: Urine Chlamydia NOT DETECTED
== END ==
PROVIDERS: PCP Family Medicine; Visit Provider Physician Assistant
DX: R30.0 Dysuria (principal)
CPT/HCPCS: 87086; 87491; 87591

== ENCOUNTER 2022-03-25 19:41 | Emergency (ER) | payer OTHER, SELFPAY ==
[2020-12-25 17:41] VITALS: BMI 29.9
[2022-03-25 19:52] VITALS: BP 138/89; PULSE 86; RESP 20; TEMP 36.5; O2SAT 97; BMI 31.4
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
[2022-03-25] MEDS: IBUPROFEN 400 MG TABLET 800 MG PO (20:28)
[2022-03-25] MEDS: CYCLOBENZAPRINE 10 MG PREPACK 1 BOTTLE MISC (21:26)
== END 2022-03-25 21:29 | disposition home or self-care (01) ==
PROVIDERS: Emergency Provider Emergency Medicine; PCP Family Medicine
DX: S39.012A Strain of muscle, fascia and tendon of lower back, initial encounter (principal); R07.89 Other chest pain; R06.02 Shortness of breath; V89.2XXA Person injured in unspecified motor-vehicle accident, traffic, initial encounter
CPT/HCPCS: 71046; 99283

== ENCOUNTER → 2022-07-21 09:26 | Outpatient (CLI) | payer OTHER, SELFPAY ==
[2020-12-25 17:41] VITALS: BMI 29.9
[2022-07-21 10:35] LABS: Influenza A - CEPHEID Flu A POSITIVE (NEGATIVE); Influenza B - CEPHEID Flu B NEGATIVE (NEGATIVE); Respiratory Syncytial Virus Negative (Negative)
[2022-07-21 10:49] LABS: COVID-19 CEPHEID 4-PLEX PCR Negative (Negative)
== END ==
PROVIDERS: PCP Family Medicine; Visit Provider Student in an Organized Health Care Education/Training Program
DX: R50.9 Fever, unspecified (principal)
CPT/HCPCS: 0241U

== ENCOUNTER → 2023-10-13 14:51 | Outpatient (CLI) | payer OTHER, SELFPAY ==
[2022-08-26 08:48] VITALS: BMI 29.9
--- NOTE | 2023-10-13 14:53 | DI.MRI.S_ITS ---
PROCEDURE: MR LUMBAR SPINE WO CON INDICATIONS: Radiculopathy, lumbar region TECHNIQUE: Noncontrast sagittal T1 spin echo and T2 fast echo, sagittal STIR, and T2 fast spin echo through the lumbar spine. In cases with scoliosis, additional coronal T2 fast spin echo may be performed. COMPARISON: [facility], MR, L-SPINE W&WO CONTRAST, 06/03/2015, 9:45. FINDINGS: Image quality: Excellent. Alignment and Curvature: There is normal bony alignment. Bone Marrow: Postoperative changes from posterior spinal fixation and discectomy at L4-5. Modic type 2 degenerative endplate changes at L4-5. Modic type 1 degenerative endplate changes T12-L1 and L1-L2. Marrow is of normal overall signal. No acute vertebral body compression fractures. Spinal Cord: Conus medullaris terminates at the L1 level. Visualized cord demonstrates normal signal and size. Paraspinous Soft Tissues: No paravertebral masses. T12-L1: Disc desiccation height loss. Mild posterior disc bulge. Facet arthropathy. No central canal or neural foraminal stenosis. L1-L2: Disc desiccation and mild posterior disc bulge. No central canal or neural foraminal stenosis. L2-L3: Facet arthropathy and thickening of ligamentum flavum. No central canal or neural foraminal stenosis. L3-L4: Minimal disc bulge. Facet arthropathy and thickening of ligamentum flavum. Epidural lipomatosis. No central canal or neural foraminal stenosis. L4-L5: Postoperative changes. No central canal stenosis. Mild left neural foraminal stenosis. No right neural foraminal stenosis. L5-S1: Disc desiccation height loss. Left paracentral disc protrusion. Facet arthropathy. No central canal stenosis. Moderate left neural foraminal stenosis is progressed from prior. No right neural foraminal stenosis. IMPRESSION: 1. Degenerative changes of the lumbar spine status post L4-L5 posterior spinal fixation and discectomy. 2. Moderate left neural foraminal stenosis at L5-S1 appears progressed. 3. No significant central canal or neural foraminal stenosis at other levels. Dictated by: Jeremy Rock M.D. on 10/13/2023 at 16:39 Approved by: Jeremy Rock M.D. on 10/13/2023 at 16:44
== END ==
LOC: MRI 14:52
PROVIDERS: PCP Family Medicine; Referring Provider Physical Medicine & Rehabilitation; Visit Provider Physical Medicine & Rehabilitation
DX: M47.26 Other spondylosis with radiculopathy, lumbar region (principal); M48.07 Spinal stenosis, lumbosacral region; M47.27 Other spondylosis with radiculopathy, lumbosacral region
CPT/HCPCS: 72148

== ENCOUNTER → 2023-10-21 10:30 | Outpatient (CLI) | payer OTHER, SELFPAY ==
[2022-08-26 08:48] VITALS: BMI 29.9
--- NOTE | 2023-10-21 10:31 | DI.MRI.S_ITS ---
PROCEDURE: MR CERVICAL SPINE WO CON INDICATIONS: Radiculopathy, cervical region TECHNIQUE: Noncontrast sagittal T1 spin echo and T2 fast spin echo, sagittal STIR, foraminal oblique sagittal T2 fast spin echo, and axial gradient echo or T2 fast spin echo through the cervical spine. COMPARISON: None. FINDINGS: Image quality: Excellent. Alignment and Curvature: There is normal bony alignment. Bone Marrow: Marrow demonstrates normal overall signal. Spinal Cord: Visualized spinal cord has normal size and signal. No cerebellar tonsillar herniation. Paraspinous Soft Tissues: No paravertebral masses. Prevertebral soft tissues are normal in thickness. C2-C3: No disc bulge, spinal stenosis or foraminal narrowing. C3-C4: No disc bulge or spinal stenosis. Minimal bilateral foraminal narrowing. C4-C5: Minimal disc bulge without spinal stenosis. Minimal left foraminal narrowing. C5-C6: Mild disc bulge with slight effacement of the anterior thecal sac. Minimal bilateral foraminal narrowing. C6-C7: Mild disc bulge with slight effacement of the anterior thecal sac. No foraminal narrowing. C7-T1: Mild disc bulge without spinal stenosis. Minimal left foraminal narrowing. IMPRESSION: Scattered disc bulges. Scattered predominantly minimal foraminal narrowing. Dictated by: Nena Durham M.D. on 10/23/2023 at 10:24 Approved by: Nena Durham M.D. on 10/23/2023 at 10:31
== END ==
PROVIDERS: PCP Family Medicine; Referring Provider Orthopaedic Surgery; Visit Provider Orthopaedic Surgery
DX: M50.122 Cervical disc disorder at C5-C6 level with radiculopathy (principal)
CPT/HCPCS: 72141

== ENCOUNTER → 2024-12-17 07:37 | Outpatient (CLI) | payer OTHER, SELFPAY ==
[2022-08-26 08:48] VITALS: BMI 29.9
--- NOTE | 2024-12-17 07:41 | DI.MRI.S_ITS ---
PROCEDURE: MR FOOT RT WO CON INDICATIONS: ankle pain TECHNIQUE: Multiphasic, multisequence MRI of the forefoot was performed, without intravenous contrast administration. COMPARISON: None. FINDINGS: Image quality: Excellent. Bones and joints: Normal in signal. No marrow edema. No acute fracture. No significant degenerative changes. Small to moderate effusion within the 1st through 5th metatarsophalangeal joint. Soft tissues: The visualized plantar fascia is unremarkable. Trace amount of fluid at the master knot of Eliud. The flexor tendons are otherwise unremarkable. The extensor tendons are unremarkable. Muscles are normal in signal. No muscle edema or fatty atrophy. No significant intermetatarsal bursitis. The Lisfranc ligament is intact. Mild adventitial bursitis plantar to the 3rd metatarsal head (05:12). IMPRESSION: 1. Small to moderate effusion within the 1st through 5th metatarsophalangeal joints. 2. Mild adventitial bursitis plantar to the 3rd metatarsal head. Dictated by: Noelle Crump M.D. on 12/17/2024 at 9:41 Approved by: Noelle Crump M.D. on 12/17/2024 at 9:49
--- NOTE | 2024-12-17 07:55 | DI.MRI.S_ITS ---
PROCEDURE: MR ANKLE RT WO CON INDICATIONS: PAIN TECHNIQUE: Noncontrast sagittal T1 spin echo and T2 fast spin echo with fat saturation, axial proton density fast spin echo and T2 fast spin echo with fat saturation, coronal T1 spin echo and T2 fast spin echo with fat saturation through the ankle/hindfoot. COMPARISON: [facility], MR, MR ANKLE RT WO CON, 02/25/2019, 19:14. FINDINGS: Image quality: Excellent Tendons: Moderate tenosynovitis of the posterior tibialis. The flexor digitorum longus, and the flexor hallucis longus are unremarkable. The extensor tendons and the peroneal tendons are unremarkable. Mild tendinosis of the distal Achilles tendon, with mild peritenonitis. No tear of the distal Achilles tendon. Ligaments: The anterior and posterior tibiofibular ligaments are intact. The anterior and the posterior talofibular ligament are intact. Thickening of the calcaneofibular ligament, representing prior sprain. The deep portion of the deltoid ligament is unremarkable. Sinus tarsi: No fibrosis. Plantar fascia: Unremarkable Muscles: Normal in signal . Bones: Type 2 os trigonum, with mild marrow edema, concerning for accessory navicular syndrome. Small tibiotalar and posterior subtalar effusion. Small amount of fluid within the Gruberi bursa. IMPRESSION: 1. Moderate tenosynovitis of the posterior tibialis, slightly improved from prior exam. 2. Mild tendinosis distal Achilles tendon with mild peritendinitis. 3. 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 Dictated by: Noelle Crump M.D. on 12/17/2024 at 9:29 Approved by: Noelle Crump M.D. on 12/17/2024 at 9:41
== END ==
PROVIDERS: PCP Family Medicine
DX: M76.61 Achilles tendinitis, right leg (principal); M65.971 Unspecified synovitis and tenosynovitis, right ankle and foot; M25.571 Pain in right ankle and joints of right foot
CPT/HCPCS: 73718; 73721

== ENCOUNTER 2025-02-09 01:27 | Emergency (ER) | payer OTHER, SELFPAY ==
[2022-08-26 08:48] VITALS: BMI 29.9
[2025-02-09] VITALS (7 sets, daily range): BP systolic 126–141; BP diastolic 76–84; PULSE 62–77; RESP 9–18; TEMP 36.7; O2SAT 94–98; BMI 29.9
--- NOTE | 2025-02-09 01:35 | DI.RAD.S_ITS ---
PROCEDURE: XR CHEST 1V INDICATIONS: Chest Pain, palpitations, hypertension TECHNIQUE: One view of the chest was acquired. COMPARISON: [facility], CR, XR CHEST 2V, 03/25/2022, 20:59. FINDINGS: Surgical changes and devices: None. Lungs and pleura: Lungs are clear. No pleural effusions or pneumothorax. Mediastinum: Mediastinal contours appear normal. Heart size is normal. Bones and chest wall: No suspicious bony lesions. Overlying soft tissues appear unremarkable. IMPRESSION: Normal portable chest. Dictated by: Juan Aguilar M.D. on 02/09/2025 at 1:01 Approved by: Juan Aguilar M.D. on 02/09/2025 at 1:02
--- NOTE | 2025-02-09 01:45 | EKG_ITS ---
[facility] [address] [address] Test Date: 2025-02-09 Pat Name: Glenn Youssef Department: [facility] Room: Gender: Male Counter Person: MARSHA : 1985 Requested By: Order Number: [id number] Reading MD: Wilber Graham Measurements Intervals [place] Rate: 80 P: 78 UT: 144 QRS: 70 QRSD: 88 T: 62 QT: 372 QTc: 429 Interpretive Statements Sinus rhythm with premature supraventricular complexes Electronically Signed On 02-09-2025 13:58:01 PDT by Wilber Graham
--- NOTE | 2025-02-09 01:51 | PC.NURSE ---
Pt states he has chronic low back pain. However, reason for coming in tonight is for the palpitations.
[2025-02-09 01:59] LABS: Add Manual Diff / Slide Review NO; Basophils Absolute Auto 200 /uL (0-100); Basophils Percent Auto 3.2 % (0-2); Eosinophils Absolute Auto 300 /uL (0-450); Eosinophils Percent Auto 4.7 % (2-4); Hematocrit 41.4 % (41-53); Hemoglobin 14.5 g/dL (13.5-17.5); Lymphocytes Absolute Auto 1400 /uL (1100-4500); Mean Corpuscular HGB Conc 34.9 % (30-36); Mean Corpuscular Hemoglobin 31.2 PG (26-34); Mean Corpuscular Volume 89.3 fL (80-100); Monocytes Absolute Auto 500 /uL (0-900); Monocytes Percent Auto 7.2 % (3-14); Neutrophils Absolute Auto 4500 /uL (1500-7000); Neutrophils Percent Auto 64.9 % (50-75); Platelet Count 243 X10^3/uL (150-400); Red Blood Cell Count 4.63 X10^6/uL (4.5-5.9); Red Cell Distribution Width 12.4 % (11.6-14.8); White Blood Cell Count 6.9 X10^3/uL (4.5-11.0)
--- NOTE | 2025-02-09 01:59 | ED_ITS ---
HPI - Arrhythmia/Palpitations General Chief Complaint: Arrhythmia/Palpitations Stated Complaint: Heart Palpitations, HBP, Rapid pulse Time Seen by Provider: 02/09/25 01:38 Source: patient Mode of arrival: Family Vehicle History of Present Illness HPI narrative: 39-year-old male complains of palpitation symptoms for the last 12 hours, flutter he like sensation in his chest. No chest pain or pressure. No shortness of breath. No nausea or vomiting. No sensation of chills or sweats. No pain in his back or abdomen. Denies fevers or chills. Admits to cannabis use, denies other drug use. Denies significant change in coffee or other caffeine intake. Denies use of decongestant medications. Denies new medications or changes in medications. No previous heart rhythm problems. No cardiac procedure interventions recalled. Related Data Home Medications ?Medication ?Instructions ?Recorded ?Confirmed clonidine 0.2 mg/24 hr weekly 1 patch transdermal QWEE K 10/04/22 10/04/22 transdermal patch Previous Rx's ?Medication ?Instructions ?Recorded cyclobenzaprine 10 mg tablet 10 mg PO Q8H PRN muscle s pasm #10 03/25/22 tabs Allergies Allergy/AdvReac Type Severity Reaction Status Date / Time No Known Drug Allergies Allergy Verified 02/09/25 01:41 Patient History Medical History (Updated 02/09/25 @ 03:20 by Magdiel Ruiz MD) Encounter for sterilization Sterilization consult Liver disease Chronic GERD Arthritis Acne cystica Dyspepsia Right shoulder pain Dysuria Social History household members: significant other and children Tobacco: How many years used: 20 quit status: quit date established second hand exposure: No alcohol intake: current substance use type: marijuana Type(s) of exercise: walking frequency: daily alcohol intake frequency: 0-2 drinks per day Alcohol type: beer, wine and hard liquor Exam Narrative Exam Narrative: GENERAL: Well-developed patient, in mild distress. HEAD: Atraumatic. Normocephalic. EYES: Pupils equal round and reactive. Extraocular motions intact. No scleral icterus. No injection or drainage. ENT: Nose without bleeding, purulent drainage. Throat without erythema, tonsillar hypertrophy or exudate. Airway patent. NECK: Trachea midline. Non tender CARDIOVASCULAR: Regular rate and rhythm without murmurs, gallops, or rubs. RESPIRATORY: Clear to auscultation. Breath sounds equal bilaterally. No wheezes, rales, or rhonchi. GASTROINTESTINAL: Abdomen soft, non-tender, nondistended. EXTREMITIES: No edema or joint tenderness. BACK: Nontender without deformity or crepitance. No flank tenderness. NEURO: AOx3. Motor functions grossly nonfocal SKIN: No rash or erythema of visible areas Initial Vital Signs Initial Vital Signs: Vital Signs Pulse Rate 77 02/09/25 01:38 Respiratory Rate 12 02/09/25 01:38 Pulse Oximetry 98 02/09/25 01:38 Course Orders Ordered: ED Orders 02/09/25 01:35 XR chest 1V Stat EKG-12 Lead Stat 02/09/25 01:40 Complete Blood Count AUTO DIFF Stat Comprehensive Metabolic Panel Stat Lactate (Lactic Acid) Stat Lipase Stat Magnesium Stat NT-proBNP (BNP-Adult 18+) Stat PTT Partial Thromboplastin Madi Stat Prothrombin Time INR Stat Troponin & CK Cardiac Panel Stat Discontinued Medications Aspirin (Aspirin 81 Mg Chew Tab) 324 mg PO NOW ONE Stop: 02/09/25 01:36 Vital Signs Vital signs: Vital Signs - 8 hr 02/09/25 01:38 02/09/25 01:39 02/09/25 01:39 Temperature Pulse Rate 77 75 Respiratory Rate 12 9 L Blood Pressure 141/84 H Pulse Oximetry 98 98 Oxygen Delivery Method Room Air 02/09/25 01:42 02/09/25 02:00 02/09/25 02:00 Temperature 98.0 F Pulse Rate 74 68 Respiratory Rate 10 L 12 Blood Pressure 141/84 H 126/76 Pulse Oximetry 98 96 Oxygen Delivery Method Room Air 02/09/25 02:19 02/09/25 02:30 02/09/25 03:00 Temperature Pulse Rate 62 68 Respiratory Rate 17 18 Blood Pressure 126/78 Pulse Oximetry 94 95 Oxygen Delivery Method MDM - Arrhythmia/Palpitations Lab Data Attestation: I reviewed the patient's lab results. Lab results narrative: White blood cell count 6900, hemoglobin 14.5, platelets adequate. Glucose 96. BUN 10 with creatinine 0.76. Normal electrolytes. Liver functions normal. Lipase negative. Troponin negative. BNP normal. 02/09/25 01:40 02/09/25 01:40 Labs: Lab Results 06/08/25 Range/Units 01:40 WBC 6.9 (4.5-11.0) X10^3/uL RBC 4.63 (4.5-5.9) X10^6/uL Hgb 14.5 (13.5-17.5) g/dL Hct 41.4 (41-53) % MCV 89.3 (80-100) fL MCH 31.2 (26-34) PG MCHC 34.9 (30-36) % RDW 12.4 (11.6-14.8) % Plt Count 243 (150-400) X10^3/uL Neut % (Auto) 64.9 (50-75) % Lymph % (Auto) 20.0 L (25-40) % [place] % (Auto) 7.2 (3-14) % Eos % (Auto) 4.7 H (2-4) % Baso % (Auto) 3.2 H (0-2) % Neut # (Auto) 4500 (4743-7593) /uL Lymph # (Auto) 1400 (9674-0645) /uL [place] # (Auto) 500 (0-900) /uL Eos # (Auto) 300 (0-450) /uL Baso # (Auto) 200 H (0-100) /uL PT 11.4 (9.4-12.5) SECONDS INR 1.0 (0.9-1.3) APTT 33 (25.1-36.5) SECONDS Sodium 138 (137-145) mmol/L Potassium 4.1 (3.4-5.1) mmol/L Chloride 105 (98-107) mmol/L Carbon Dioxide 25 (22-32) mmol/L BUN 10 (9-20) mg/dL Creatinine 0.76 (0.66-1.25) mg/dL Estimated GFR > 60 (>60) mL/min BUN/Creatinine Ratio 13.2 (6-22) Glucose 96 (70-99) mg/dL Lactate 1.0 (0.7-2.1) mmol/L Calcium 9.4 (8.4-10.2) mg/dL Magnesium 1.8 (1.6-2.3) mg/dL Total Bilirubin 0.5 (0.2-1.3) mg/dL AST 36 (17-59) IU/L ALT 41 (<50) IU/L Alkaline Phosphatase 70 (38-126) U/L Total Creatine Kinase 164 (55-170) U/L Troponin I < 0.012 (0.01-0.034) ng/mL NT-Pro-B Natriuret Pep 31 (<125) pg/mL Total Protein 7.5 (6.3-8.2) g/dL Albumin 4.7 (3.5-5.0) g/dL Globulin 2.8 (1.7-4.1) g/dL Albumin/Globulin Ratio 1.7 (1.0-2.8) Lipase 118 (23-300) U/L Imaging Data Chest x-ray: Radiologist's Impresson: [address] [address] XRay Report Signed Patient: Glenn Youssef MR#: [id number] : 1985 Acct:[id number] Age/Sex: 39 / M Date of Service: 02/09/25 Loc: ED Accession Number: [id number] Procedure: XR chest 1V Ordering Provider: Magdiel Ruiz MD PROCEDURE: XR CHEST 1V INDICATIONS: Chest Pain, palpitations, hypertension TECHNIQUE: One view of the chest was acquired. COMPARISON: [facility], , XR CHEST 2V, 03/25/2022, 20:59. FINDINGS: Surgical changes and devices: None. Lungs and pleura: Lungs are clear. No pleural effusions or pneumothorax. Mediastinum: Mediastinal contours appear normal. Heart size is normal. Bones and chest wall: No suspicious bony lesions. Overlying soft tissues appear unremarkable. IMPRESSION: Normal portable chest. Dictated by: Juan Aguilar M.D. on 02/09/2025 at 1:01 Approved by: Juan Aguilar M.D. on 02/09/2025 at 1:02 ECG Data Attestation: I personally reviewed and interpreted this ECG as follows: Interpretation: 0145, Normal sinus rhythm with rate of 80, no obvious ST segment elevation or depression changes. [place] 144, QRS 88, QTC 429. MDM Narrative Medical decision making narrative: 39-year-old male with heart fluttering like symptoms of unclear etiology. 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 No ectopy noted. Patient seems to be having the symptoms while he is here as well, though they do not seem to correlate with any dysrhythmia or ectopy identified on monitoring. Screening labs sent. Screening labs unremarkable, electrolytes normal, troponin negative. Chest x-ray negative. Offered repeat interval troponin, declined. He would like to go home and follow up further with his [facility] providers. He declines prescription for hydroxyzine or any anxiolytic therapies at this time. Discharged home. Follow up for further workup as an outpatient for now. Return precautions discussed. Discharge Plan Departure Patient Disposition: Home Clinical Impression: Heart palpitations Activity Restrictions/Additional Instructions: Heart fluttering like symptoms. No objective abnormal heart rhythms or extra beats or ectopy on cardiac monitoring. EKG normal. Electrolytes and blood test unremarkable. Chest x-ray unremarkable. Unclear etiology of symptoms. Offered antianxiety medication, declined for now. Further evaluation via [facility] for now as an outpatient. [facility] for further evaluation. Return to this/nearest emergency department for any change worsening symptoms or any concerns prior. Prescriptions: No Action cyclobenzaprine 10 mg tablet 10 mg PO Q8H PRN (Reason: muscle spasm) Qty: 10 0RF clonidine 0.2 mg/24 hr patch weekly 1 patch transdermal QWEEK Referrals: El Gonsalves DO [Primary Care Provider, Family Practice] Stand Alone Forms: Patient Portal/API
[2025-02-09 02:02] LABS: Prothrombin Time 11.4 SECONDS (9.4-12.5)
[2025-02-09 02:05] LABS: PTT Partial Thromboplastin Tim 33 SECONDS (25.1-36.5)
[2025-02-09 02:10] LABS: Alanine Aminotransferase 41 IU/L (<50); Albumin 4.7 g/dL (3.5-5.0); Albumin Globulin Ratio 1.7 (1.0-2.8); Alkaline Phosphatase 70 U/L (38-126); Aspartate Aminotransferase 36 IU/L (17-59); BUN Creatinine Ratio 13.2 (6-22); Bilirubin Total 0.5 mg/dL (0.2-1.3); Blood Urea Nitrogen 10 mg/dL (9-20); Calcium 9.4 mg/dL (8.4-10.2); Carbon Dioxide 25 mmol/L (22-32); Chloride 105 mmol/L (98-107); Creatine Kinase 164 U/L (55-170); Estimated Glomerular Filt Rate > 60 mL/min (>60); Globulin 2.8 g/dL (1.7-4.1); Glucose 96 mg/dL (70-99); HEMOLYSIS < 15 (0-50); Lipase 118 U/L (23-300); Magnesium 1.8 mg/dL (1.6-2.3); Potassium 4.1 mmol/L (3.4-5.1); Sodium 138 mmol/L (137-145); Total Protein 7.5 g/dL (6.3-8.2)
[2025-02-09 02:21] LABS: NT-proBNP (BNP-Adult 18+) 31 pg/mL (<125); Troponin I < 0.012 ng/mL (0.01-0.034)
== END 2025-02-09 03:31 | disposition home or self-care (01) ==
PROVIDERS: Emergency Provider Emergency Medicine; PCP Family Medicine
DX: R00.2 Palpitations (principal)
CPT/HCPCS: 36415; 71045; 80053; 82550; 83605; 83690; 83735; 83880; 84484; 85025; 85610; 85730; 93005; 99283; 99284

== ENCOUNTER 2025-02-19 21:41 | Emergency (ER) | payer OTHER, SELFPAY ==
[2022-08-26 08:48] VITALS: BMI 29.9
[2025-02-19 21:52] VITALS: BP 137/81; PULSE 75; RESP 20; TEMP 36.3; O2SAT 99; BMI 30.7
--- NOTE | 2025-02-19 21:55 | EKG_ITS ---
[facility] [address] [address] Test Date: 2025-02-19 Pat Name: Glenn Youssef Department: Room: Gender: Male Oxygen Therapist: DANNY : 1985 Requested By: Order Number: [id number] Reading MD: Poli Wells MD Measurements Intervals [place] Rate: 78 P: 34 [place]: 134 QRS: 36 QRSD: 84 T: 38 QT: 356 QTc: 405 Interpretive Statements Normal sinus rhythm Electronically Signed On 02-20-2025 7:35:32 PDT by Poli Wells MD
--- NOTE | 2025-02-19 21:58 | DI.RAD.S_ITS ---
PROCEDURE: XR CHEST 1V INDICATIONS: Chest Pain TECHNIQUE: One view of the chest was acquired. COMPARISON: [facility], , XR CHEST 1V, 02/09/2025, 1:36. FINDINGS: Surgical changes and devices: Surgical changes of the proximal right humeral diaphysis as well as the left glenoid. Lungs and pleura: Lungs are clear. No pleural effusions or pneumothorax. Mediastinum: Mediastinal contours appear normal. Heart size is normal. Bones and chest wall: No suspicious bony lesions. Overlying soft tissues appear unremarkable. IMPRESSION: No acute cardiopulmonary abnormalities or focal consolidation. Dictated by: Addy Mercer M.D. on 02/19/2025 at 23:26 Approved by: Addy Mercer M.D. on 02/19/2025 at 23:27
[2025-02-19 22:13] LABS: Add Manual Diff / Slide Review NO; Basophils Absolute Auto 100 /uL (0-100); Basophils Percent Auto 0.9 % (0-2); Eosinophils Absolute Auto 200 /uL (0-450); Eosinophils Percent Auto 3.5 % (2-4); Hematocrit 41.9 % (41-53); Hemoglobin 14.7 g/dL (13.5-17.5); Lymphocytes Absolute Auto 2300 /uL (1100-4500); Mean Corpuscular HGB Conc 35.1 % (30-36); Mean Corpuscular Hemoglobin 31.4 PG (26-34); Mean Corpuscular Volume 89.5 fL (80-100); Monocytes Absolute Auto 500 /uL (0-900); Monocytes Percent Auto 8.2 % (3-14); Neutrophils Absolute Auto 2800 /uL (1500-7000); Neutrophils Percent Auto 48.4 % (50-75); Platelet Count 222 X10^3/uL (150-400); Red Blood Cell Count 4.68 X10^6/uL (4.5-5.9); Red Cell Distribution Width 12.7 % (11.6-14.8); White Blood Cell Count 5.8 X10^3/uL (4.5-11.0)
[2025-02-19 22:20] LABS: Prothrombin Time 11.8 SECONDS (9.4-12.5)
[2025-02-19 22:23] LABS: PTT Partial Thromboplastin Tim 32 SECONDS (25.1-36.5)
[2025-02-19 22:24] LABS: Alanine Aminotransferase 31 IU/L (<50); Albumin 4.8 g/dL (3.5-5.0); Albumin Globulin Ratio 1.7 (1.0-2.8); Alkaline Phosphatase 64 U/L (38-126); Aspartate Aminotransferase 31 IU/L (17-59); BUN Creatinine Ratio 21.3 (6-22); Bilirubin Total 0.6 mg/dL (0.2-1.3); Blood Urea Nitrogen 17 mg/dL (9-20); Calcium 9.3 mg/dL (8.4-10.2); Carbon Dioxide 24 mmol/L (22-32); Chloride 104 mmol/L (98-107); Creatine Kinase 111 U/L (55-170); Estimated Glomerular Filt Rate > 60 mL/min (>60); Globulin 2.8 g/dL (1.7-4.1); Glucose 92 mg/dL (70-99); HEMOLYSIS 21 (0-50); Lipase 158 U/L (23-300); Sodium 137 mmol/L (137-145); Total Protein 7.6 g/dL (6.3-8.2)
[2025-02-19 22:36] LABS: NT-proBNP (BNP-Adult 18+) < 20 pg/mL (<125); Troponin I < 0.012 ng/mL (0.01-0.034)
--- NOTE | 2025-02-19 23:39 | ED_ITS ---
HPI - Chest Pain General Chief Complaint: Chest Pain Stated Complaint: ChestPain, SOB, High Blood Pressure, Dizziness Time Seen by Provider: 02/19/25 23:39 Source: patient Mode of arrival: Ambulatory History of Present Illness HPI narrative: 39-year-old gentleman seen now for the 3rd time once by ER primary care provider and again with palpitations central chest tightness and increasing overall anxiety. States that he has been trying very hard to limit stress, regular exercise, he golfs, he has cut down on all caffeine and energy drinks, he no longer is using any marijuana, he notes that he does have ?3 baby mommas and 4 kids which do seem to be contributing to his stress. Related Data Home Medications ?Medication ?Instructions ?Recorded ?Confirmed clonidine HCl 0.1 mg tablet 0.1 mg PO BID 02/11/2506/28 Previous Rx's ?Medication ?Instructions ?Recorded propranolol 20 mg tablet 20 mg PO BID #60 tabs Allergies Allergy/AdvReac Type Severity Reaction Status Date / Time No Known Drug Allergies Allergy Verified 02/19/25 21:52 Patient History Medical History (Updated 02/19/25 @ 23:58 by Chana Serrano MD) Encounter for sterilization Sterilization consult Liver disease Chronic GERD Arthritis Acne cystica Dyspepsia Right shoulder pain Dysuria Social History household members: significant other and children Tobacco: How many years used: 20 quit status: quit date established second hand exposure: No alcohol intake: current substance use type: marijuana Type(s) of exercise: walking frequency: daily Smoking Status: Current some day smoker alcohol intake frequency: 0-2 drinks per day Alcohol type: beer, wine and hard liquor Exam Initial Vital Signs Initial Vital Signs: Vital Signs Temperature 97.4 F L 02/19/25 21:52 Pulse Rate 75 02/19/25 21:52 Respiratory Rate 20 02/19/25 21:52 Blood Pressure 137/81 02/19/25 21:52 Pulse Oximetry 99 02/19/25 21:52 Oxygen Delivery Method Room Air 02/19/25 21:52 General: Healthy appearing, in no acute distress. Able to give a complete and coherent history. Well-nourished well-developed HEENT: Moist mucous membranes, normal sclera with reactive pupils, Neck: No JVD, supple Respiratory: Lungs are clear to auscultation, no wheezing no rales no rhonchi. Full and symmetrical air movement Cardiac: Regular rate and rhythm no murmurs no bruits Abdomen: Soft, nontender, no rebound or guarding, no flank pain Skin: Warm and dry, no rashes Neurologic: Grossly neurologically intact with no obvious asymmetries or abnormalities Extremities: No trauma, well perfused Psych: Cooperative, appropriate insight and affect Course Orders Ordered: ED Orders 02/19/25 21:58 XR chest 1V Stat EKG-12 Lead Stat 02/19/25 22:05 Complete Blood Count AUTO DIFF Stat Comprehensive Metabolic Panel Stat Lipase Stat Magnesium Stat NT-proBNP (BNP-Adult 18+) Stat PTT Partial Thromboplastin Madi Stat Prothrombin Time INR Stat Troponin & CK Cardiac Panel Stat Discontinued Medications Aspirin (Aspirin 81 Mg Chew Tab) 324 mg PO NOW ONE Stop: 02/19/25 21:59 Vital Signs Vital signs: Vital Signs - 8 hr 02/19/25 21:52 Temperature 97.4 F L Pulse Rate 75 Respiratory Rate 20 Blood Pressure 137/81 Pulse Oximetry 99 Oxygen Delivery Method Room Air MDM - Chest Pain Lab Data 02/19/25 22:05 02/19/25 22:05 Labs: Lab Results 02/19/25 Range/Units 22:05 WBC 5.8 (4.5-11.0) X10^3/uL RBC 4.68 (4.5-5.9) X10^6/uL Hgb 14.7 (13.5-17.5) g/dL Hct 41.9 (41-53) % MCV 89.5 (80-100) fL MCH 31.4 (26-34) PG MCHC 35.1 (30-36) % RDW 12.7 (11.6-14.8) % Plt Count 222 (150-400) X10^3/uL Neut % (Auto) 48.4 L (50-75) % Lymph % (Auto) 39.0 (25-40) % [place] % (Auto) 8.2 (3-14) % Eos % (Auto) 3.5 (2-4) % Baso % (Auto) 0.9 (0-2) % Neut # (Auto) 2800 (7340-4939) /uL Lymph # (Auto) 2300 (3997-1433) /uL [place] # (Auto) 500 (0-900) /uL Eos # (Auto) 200 (0-450) /uL Baso # (Auto) 100 (0-100) /uL PT 11.8 (9.4-12.5) SECONDS INR 1.0 (0.9-1.3) APTT 32 (25.1-36.5) SECONDS Sodium 137 (137-145) mmol/L Potassium 4.0 (3.4-5.1) mmol/L Chloride 104 (98-107) mmol/L Carbon Dioxide 24 (22-32) mmol/L BUN 17 (9-20) mg/dL Creatinine 0.80 (0.66-1.25) mg/dL Estimated GFR > 60 (>60) mL/min BUN/Creatinine Ratio 21.3 (6-22) Glucose 92 (70-99) mg/dL Calcium 9.3 (8.4-10.2) mg/dL Magnesium 2.0 (1.6-2.3) mg/dL Total Bilirubin 0.6 (0.2-1.3) mg/dL AST 31 (17-59) IU/L ALT 31 (<50) IU/L Alkaline Phosphatase 64 (38-126) U/L Total Creatine Kinase 111 (55-170) U/L Troponin I < 0.012 (0.01-0.034) ng/mL NT-Pro-B Natriuret Pep < 20 (<125) pg/mL Total Protein 7.6 (6.3-8.2) g/dL Albumin 4.8 (3.5-5.0) g/dL Globulin 2.8 (1.7-4.1) g/dL Albumin/Globulin Ratio 1.7 (1.0-2.8) Lipase 158 (23-300) U/L [facility] Narrative Medical decision making narrative: 39-year-old gentleman with situational disturbance and increased anxiety with increasing episodes of heart palpitation and a sense of chest tightening. He is afraid that he is actually going to . He was seen in the emergency department with cardiac evaluation on February 09 that was unremarkable. He saw his primary care physician on February 11 and a Zio patch is going to be ordered. This evening had another episode of palpitations and came in for further evaluation. He does take 0.1 mg clonidine for ADHD. Workup today was unremarkable with normal CBC, normal chemistries, undetectable troponin, low proBNP. I do not see thyroid studies in his lab work that has previously been done. We will add that to current blood available and ask him to follow up with Dr. Gonsalves regarding thyroid studies. We talked about stress response with increased adrenaline which causes rapid heart rate and can increase blood pressures. We talked about relaxation techniques, he is willing to try meditation with a bit more consistency. Was not interested in antidepressants or anxiety medications. We discussed using propranolol 20 mg b.i.d. to help with palpitations and try to alleviate the adrenaline cycle as it starts. He was amenable to that. 20 mg of propranolol was given prior to discharge today and a prescription is called to [facility] in [place]. He has a follow up scheduled with Dr. Gonsalves. At this point there was no evidence of life-threatening abnormality and no indication for hospitalization. Discharge Plan Departure Patient Disposition: Home Clinical Impression: Heart palpitations, Acute situational disturbance, Anxiety Instructions: DI for Palpitations Activity Restrictions/Additional Instructions: Thank you for coming in today Your medical workup today showed no anemia, no infection. Your kidney function, lung function was all normal. There was no evidence of acute heart attack based on blood work and EKG. No evidence of congestive heart failure. Your chest x- ray was reassuring. In listening to this description of your symptoms, I suspect that you are having some trigger that causes and increased adrenaline/anxiety response which then in turn increases your heart rate which is the palpitations and raises your blood pressure. You are doing all of the right things in terms of trying to maintain a low stress lifestyle, getting adequate sleep, exercising regularly and avoiding recreational drugs and caffeine. You mentioned that you have tried meditation in the past. Making a more focused effort to include that in daily routines maybe very helpful. There are multiple apps that you can download to help with this. I have added thyroid studies to your blood work. You can review those when you follow up with Dr. Gonsalves with your next visit. I do believe that the Zio patch that he has requested we will be helpful improving that you are not having any life-threatening heart rhythms when you do experience the palpitations In the meantime, using medication to slow your heart rate and prevent increased response with anxiety and adrenaline adverse can be helpful. Propranolol 20 mg can be useful that way. You can use it twice a day scheduled or you can use it as needed when you are feeling increasingly anxious or having a ?heavy palpitation? type of day. Both propranolol and clonidine can help to lower heart rate and blood pressure. You are on very low doses of both of these and I believe combining them at these doses is safe. If you find that you are getting worse or develop any new symptoms, please feel free to return to the emergency department for further evaluation. Prescriptions: New propranolol 20 mg tablet 20 mg PO BID Qty: 60 0RF No Action clonidine HCl 0.1 mg tablet 0.1 mg PO BID Referrals: El Gonsalves, [Primary Care Provider, Family Practice] Stand Alone Forms: Patient Portal/API
--- NOTE | 2025-02-19 23:48 | PC.NURSE ---
Pt wanting to leave. This RN brings patient back to triage room to update patient. Provider Maggie made aware of patient and goes to see him in the triage room.
[2025-02-19] MEDS: ASPIRIN 81 MG CHEW TAB 324 MG PO (23:54)
[2025-02-19] MEDS: PROPRANOLOL 10 MG TABLET 20 MG PO (23:54)
[2025-02-19 23:55] VITALS: BP 120/83; PULSE 63; RESP 18; O2SAT 100
== END 2025-02-20 00:20 | disposition home or self-care (01) ==
PROVIDERS: Emergency Provider Emergency Medicine; PCP Family Medicine
DX: R00.2 Palpitations (principal); F43.0 Acute stress reaction; F41.9 Anxiety disorder, unspecified; R07.9 Chest pain, unspecified
CPT/HCPCS: 36415; 71045; 80053; 82550; 83690; 83735; 83880; 84484; 85025; 85610; 85730; 93005; 93010; 99284

== ENCOUNTER → 2025-03-03 09:46 | Outpatient (CLI) | payer OTHER, SELFPAY ==
[2022-08-26 08:48] VITALS: BMI 29.9
== END ==
PROVIDERS: PCP Family Medicine; Referring Provider Family Medicine; Visit Provider Family Medicine
DX: I49.9 Cardiac arrhythmia, unspecified (principal); R00.2 Palpitations
CPT/HCPCS: 93246

== ENCOUNTER 2025-03-28 16:51 | Emergency (ER) | payer OTHER, SELFPAY ==
[2025-03-10 09:00] VITALS: BMI 29.9
[2025-03-28 16:58] VITALS: BP 138/83; PULSE 74; RESP 20; TEMP 37; O2SAT 97; BMI 30.7
--- NOTE | 2025-03-28 17:07 | DI.RAD.S_ITS ---
PROCEDURE: XR CHEST 2V INDICATIONS: choking TECHNIQUE: 2 views of the chest were acquired. COMPARISON: [facility], , XR CHEST 1V, 02/19/2025, 22:26. FINDINGS: Surgical changes and devices: Surgical screws overlie the left glenohumeral joint. Lungs and pleura: Lungs are clear. No pleural effusions or pneumothorax. Mediastinum: Mediastinal contours are normal. Heart size is normal. Bones and chest wall: No suspicious bony abnormalities. Soft tissues appear unremarkable. IMPRESSION: No acute pulmonary process. Dictated by: Nena Durham M.D. on 03/28/2025 at 17:48 Approved by: Nena Durham M.D. on 03/28/2025 at 17:48
[2025-03-28 22:05] VITALS: PULSE 61; O2SAT 97
[2025-03-28 22:30] VITALS: PULSE 61; O2SAT 96
[2025-03-28 23:00] VITALS: PULSE 60; O2SAT 97
--- NOTE | 2025-03-28 23:06 | ED_ITS ---
HPI - Nausea/Vomiting/Diarrhea General Chief complaint: Nausea/Vomiting/Diarrhea Stated complaint: hx of GERD, difficulty swallowing Time Seen by Provider: 03/28/25 22:52 Mode of arrival: Ambulatory History of Present Illness HPI Narrative: 39-year-old male with history of reflux clinical diagnosis since age 21, no prior endoscopy, more recent weeks has had trouble with swallowing, painful swallowing with fruits and vegetables, not really with meats, no interventions were required. No black or red stools. Occasional nausea, no emesis. He has not take blood thinner medications. No injury trauma or new activities. No problems swallowing liquids or his secretions. He is due to see his primary care provider this Monday. PCP Major. Related Data Home Medications ?Medication ?Instructions ?Recorded ?Confirmed clonidine HCl 0.1 mg tablet 0.1 mg PO BID 02/11/2506/28 Previous Rx's ?Medication ?Instructions ?Recorded propranolol 20 mg tablet 20 mg PO BID #60 tabs omeprazole 20 mg capsule,delayed 20 mg PO DAILY upper abdominal 03/28/25 release pain 30 days #30 caps Allergies Allergy/AdvReac Type Severity Reaction Status Date / Time No Known Drug Allergies Allergy Verified 03/28/25 16:59 Patient History Medical History (Updated 03/28/25 @ 23:51 by Magdiel Ruiz MD) Encounter for sterilization Sterilization consult Liver disease Chronic GERD Arthritis Acne cystica Dyspepsia Right shoulder pain Dysuria Social History household members: significant other and children Tobacco: How many years used: 20 quit status: quit date established second hand exposure: No alcohol intake: current substance use type: marijuana Type(s) of exercise: walking frequency: daily alcohol intake frequency: 0-2 drinks per day Alcohol type: beer, wine and hard liquor Exam Narrative Exam Narrative: GENERAL: Well-developed patient, in mild distress. HEAD: Atraumatic. Normocephalic. EYES: Pupils equal round and reactive. Extraocular motions intact. No scleral icterus. No injection or drainage. ENT: Nose without bleeding, purulent drainage. Throat without erythema, tonsillar hypertrophy or exudate. Airway patent. NECK: Trachea midline. Non tender CARDIOVASCULAR: Regular rate and rhythm without murmurs, gallops, or rubs. RESPIRATORY: Clear to auscultation. Breath sounds equal bilaterally. No wheezes, rales, or rhonchi. GASTROINTESTINAL: Abdomen soft, non-tender, nondistended. EXTREMITIES: No edema or joint tenderness. BACK: Nontender without deformity or crepitance. No flank tenderness. NEURO: AOx3. Motor functions grossly nonfocal. SKIN: No rash or erythema of visible areas Initial Vital Signs Initial Vital Signs: Vital Signs Temperature 98.6 F 03/28/25 16:58 Pulse Rate 74 03/28/25 16:58 Respiratory Rate 20 03/28/25 16:58 Blood Pressure 138/83 03/28/25 16:58 Pulse Oximetry 97 03/28/25 16:58 Oxygen Delivery Method Room Air 03/28/25 16:58 Course Orders Ordered: Discontinued Medications Al Hydrox/Mg Hydrox/Simethicone (Mag Hydrox/Alum/Simeth 30 Ml Udc) 30 ml PO NOW ONE Stop: 03/28/25 23:07 Last Admin: 03/28/25 23:18 Dose: 30 ml Documented By: MORGAN Pantoprazole Sodium (Pantoprazole Dr 20 Mg Tablet) 40 mg PO NOW ONE Stop: 03/28/25 23:48 Last Admin: 03/28/25 23:56 Dose: 40 mg Documented By: MORGAN Vital Signs Vital signs: Vital Signs - 8 hr 03/28/25 22:05 03/28/25 22:30 03/28/25 23:00 Pulse Rate 61 61 60 Respiratory Rate Blood Pressure Pulse Oximetry 97 96 97 Oxygen Delivery Method 03/28/25 23:30 03/28/25 23:58 03/28/25 23:58 Pulse Rate 59 L 73 Respiratory Rate 14 Blood Pressure 121/74 Pulse Oximetry 96 99 Oxygen Delivery Method Room Air MDM - Nausea/Vomiting/Diarrhea MDM Narrative Medical decision making narrative: 39-year-old male with clinical diagnosis LIDIA since age 21, no regular use of oral antacids, took [id number] antacid couple of days ago but as a single dose. Having trouble with swallowing fruits and vegetables, not with liquids. Handling secretions well. Normal phonation. Normal range of motion neck. Oral Maalox given, symptoms seemed to be improved. Oral pantoprazole dose given. Advised regular scheduled PPI omeprazole for 2-4 weeks healing process. Consider endoscopy. Patient due to see his primary care provider this W , consider referral for upper endoscopy. Patient given contact information for General surgery on-call, though might require referral from primary care provider. Discharge Plan Departure Patient Disposition: Home Clinical Impression: GERD (gastroesophageal reflux disease) Instructions: DI for Gastroesophageal Reflux Disease (GERD) Activity Restrictions/Additional Instructions: Clinical diagnosis of gastroesophageal reflux (GERD) since age 21, no upper endoscopy evaluation so far. No regular use of antacid therapy. Occasional use of antacid therapy. Trouble with swallowing fruits and vegetables. No known peptic strictures or other esophageal pathology, no prior studies. Oral liquid antacid Maalox given, some improvement of symptoms. Able to handle secretions well here in the emergency department. No emergent imaging indicated now. But would advise outpatient upper endoscopy. Contact information given for local general surgery, who does local endoscopies that are area. There were no gastroenterology specialists on staff here. You might need referral from your [facility] primary care provider, whom your was scheduled to see this Monday. Consider regular scheduled omeprazole antacid treatment for 2-4 weeks healing course. Prescription sent to your pharmacy. Recheck with your regular provider as planned. Consider referral for upper endoscopy. Return to this/nearest emergency department for any change worsening symptoms or any concerns prior. Prescriptions: New omeprazole 20 mg capsule,delayed release(DR/EC) 20 mg PO DAILY 30 Days Qty: 30 0RF No Action clonidine HCl 0.1 mg tablet 0.1 mg PO BID propranolol 20 mg tablet 20 mg PO BID Qty: 60 0RF Referrals: Lucio Leal MD [Physician, General Surgery] El Gonsalves DO [Primary Care Provider, Family Practice] Stand Alone Forms: Patient Portal/API
[2025-03-28] MEDS: MAG HYDROX/ALUM/SIMETH 30 ML UDC PO (23:18)
[2025-03-28 23:30] VITALS: PULSE 59; O2SAT 96
[2025-03-28] MEDS: PANTOPRAZOLE DR 20 MG TABLET 40 MG PO (23:56)
[2025-03-28 23:58] VITALS: BP 121/74; PULSE 73; RESP 14; O2SAT 99
== END 2025-03-29 00:05 | disposition home or self-care (01) ==
PROVIDERS: Emergency Provider Emergency Medicine; PCP Family Medicine
DX: K21.9 Gastro-esophageal reflux disease without esophagitis (principal)
CPT/HCPCS: 71046; 99283

== ENCOUNTER 2025-08-26 08:17 | Outpatient (CLI) | payer OTHER, SELFPAY ==
[2025-03-10 09:00] VITALS: BMI 29.9
[2025-08-26] VITALS (8 sets, daily range): BP systolic 121–142; BP diastolic 64–91; PULSE 63–79; RESP 10–18; TEMP 36.7; O2SAT 96–97
[2025-08-26] MEDS: MIDAZOLAM 2 MG/2 ML VIAL IV (09:27)
[2025-08-26] MEDS: BETAMETHASONE 30 MG/5 ML MDV 12 MG INJ (09:32)
--- NOTE | 2025-08-26 09:41 | P.PCN_ITS ---
Date/Time/Diagnoses Date of procedure: 08/26/25 Time of procedure: 09:41 Pre-procedure diagnosis: 1. HNP WITH RADICULAR FEATURES, 2. MULTILEVEL CENTRAL STENOSIS, Post-procedure diagnosis: same Procedure Notes Procedure: 1. FLUOROSCOPICALLY GUIDED CONTRAST CONTROLLED INTERLAMINAR EPIDURAL STEROID INJECTION - L5/S1 Indications: Glenn is referred by Dr. Gonsalves for treatment of Bilateral Foraminal Stenosis L>R LE symptoms. Physician: Eligio Landrum Total Fluoroscopy time (seconds): 6 Total sedation minutes: 11 Complications: none Procedure in detail & Post-procedure care: FINDINGS Multilevel Central Spinal Stenosis with Nerve Root Compression DESCRIPTION OF PROCEDURE Fluoroscopically guided, contrast-controlled L5/S1 translaminar epidural steroid injection. Following review of allergy and review of potential side effects and complications, including, but not necessarily limited to, infection, allergic reaction, local tissue breakdown, temporary as well as permanent nerve injury, paralysis, stroke and possible , the patient indicated that the patient understood and agreed to proceed. An informed consent document was signed by the patient, witnessed by a nurse, and placed in the patient's chart. Additionally, other treatment options including modalities, medications, and physical therapy were reviewed with the patient. After review of previous anaesthesic history and IV conscious sedation the patient was deemed safe to proceed with today?s procedure with IV conscious sedation as ASA class II designation. Safety time-out was performed to confirm patient ID, procedure to be performed and site of procedure. IV sedation was accomplished with a combination of 2mg of Versed administered by the RN after DO order, titrated to patient comfort during the course of the procedure while the patient remained responsive to all verbal commands. In the prone position, following sterile prep and drape of the lumbar region, the L5/S1 translaminar space was identified fluoroscopically. The skin was anesthetized via a 25-gauge, 1.5-inch needle with 1% lidocaine solution. At this point, a 22-gauge short bevel spinal needle was atraumatically introduced and advanced under fluoroscopic guidance into the region of the L5/S1 translaminar space. Depth was confirmed on lateral view. Radiological data, including multiple fluoroscopic views of the lumbar spine, reveal a spinal needle at the L5/S1 translaminar space. Lateral views then show placement of the needle in the epidural space. Subsequent views show contrast material flowing superiorly and inferiorly in the epidural space. No vascular or intrathecal uptake is observed. At this point, using loss of resistance technique with saline and air, the epidural space was entered. This was confirmed following negative aspiration with injection of approximately 1.5cc of Isovue 200, showing excellent epidural flow without vascular or intrathecal uptake. At this point, 1cc of 0.25% mar kelsea solution combined with 3cc or 10mg of dexamethasone and 12mg of betamethasone was injected without incident. The patent tolerated the procedure without signs of symptoms of complications prior to transfer to the recovery area for further monitoring. The patient was then transferred to the recovery area where they were observed for an appropriate period of time after the injection. The patient reported a VAS score of 8 prior to the procedure and a post-procedure VAS of 1. POST OP INSTRUCTIONS The patient was provided a Pain Log to continue to record their response to the target-specific procedure prior to follow-up visit with their referring physician. Additionally, specific post-injection care instructions and a contact number to our office were provided if concerns arise regarding possible complications associated with the procedure are suspected.
== END 2025-08-26 10:05 | disposition home or self-care (01) ==
PROVIDERS: PCP Family Medicine; Referring Provider Family Medicine; Visit Provider Physical Medicine & Rehabilitation
DX: M51.17 Intervertebral disc disorders with radiculopathy, lumbosacral region (principal); M48.07 Spinal stenosis, lumbosacral region
CPT/HCPCS: 62323; 99152; J0702; J1100; J2250